=== PATIENT | female | born 1940 | race Caucasian/White ===

== ENCOUNTER 2018-02-15 14:02 | Inpatient (IN) | payer MEDICARE ==
--- NOTE | 2018-02-15 14:49 | RAD ---
SINGLE VIEW CHEST: Date: 02/15/18 COMPARISON: None. HISTORY: Chest pain that began today. Tachycardia. FINDINGS: Single view of the chest shows normal sized cardiomediastinal silhouette. There is elevation of the r ight hemidiaphragm. There is no evidence of consolidation, mass, or pleural effusion. Degenerative ch anges are seen in the spine. Hardware is seen at the cervicothoracic junction. IMPRESSION: No evidence of acute cardiopulmonary disease. POS: [facility]
[2018-02-15 14:50] LABS: Hemoglobin 15.4 g/dL (12.0-16.0); Mean Corpuscular HGB CONC 33.5 g/dL (32.0-36.0); Mean Corpuscular Hemoglobin 31.2 pg (27.0-31.0); Mean Platelet Volume 8.6 fL (7.4-10.4); Platelet Count 364 thou/uL (130-400); RBC Distribution Width 12.5 % (11.5-14.5); Red Blood Cell (RBC) Count 4.93 mill/uL (4.20-5.40); White Blood Cell (WBC) Count 21.4 thou/uL (4.8-10.8)
[2018-02-15] MEDS ORDERED: Metoprolol Tartrate 5 MG/5 ML VIAL ONE (14:54)
[2018-02-15 15:12] LABS: Band 2 % (5-11); Lymphocytes 14 % (21-51); MDiff Complete? YES; Monocytes 7 % (0-10); Neutrophil 71 % (42-75); PLT Morphology Comment Appears Adequate; RBC Morphology Normal; Reactive Lymphocytes 6 % (0-10)
[2018-02-15 15:17] LABS: CKMB 1.8 ng/mL (0-6.6); Troponin I 0.018 ng/mL (< 0.028)
--- NOTE | 2018-02-15 15:22 | CT ---
CT BRAIN WITHOUT CONTRAST: Date: 02/15/18 HISTORY: 77-year-old female with altered mental status. FINDINGS: No evidence of acute infarct, hemorrhage, midline shift, or abnormal extra-axial fluid collections ar e seen. The ventricular size is normal and the basilar cisterns are patent. There are changes of chrome worker dominique small vessel ischemic disease in the periventricular white matter. The bony calvarium is intact. The visualized paranasal sinuses and mastoid air cells are well aerated. IMPRESSION: No CT evidence of acute intracranial process. POS: [facility]
[2018-02-15 15:25] LABS: Albumin 4.1 g/dL (3.4-4.8)
[2018-02-15 15:26] LABS: Calcium 9.6 mg/dL (7.8-10.44); Chloride 98 mmol/L (98-107); Magnesium 2.3 mg/dL (1.6-2.6); Sodium 141 mmol/L (136-145)
[2018-02-15 15:27] LABS: Glucose 90 mg/dL (83-110)
--- NOTE | 2018-02-15 15:27 | CT ---
CT OF THE CERVICAL SPINE WITHOUT CONTRAST: Date: 02/15/18 COMPARISON: None. HISTORY: Neck injury with neck pain. TECHNIQUE: Multiple contiguous axial images were obtained in a CT of the cervical spine without contrast. Sagitt al and coronal reformats were performed. FINDINGS: The patient is status post anterior fusion of C4 through C6 with a plate and screws. In addition, the patient is status post anterior fusion of C7 and T1 with a plate and screws. There are severe degene rative changes surrounding the intervertebral disc between the two levels of fusion at C6-7. The vanesa tebral bodies demonstrate normal alignment without subluxation. No prevertebral soft tissue swelling is present. No perihardware lucency is present. The posterior facets are well aligned. Normal alignme nt of the skull base with the cervical spine is seen. IMPRESSION: Degenerative changes and postsurgical changes of the cervical spine without acute osseous abnormality . POS: [facility]
[2018-02-15 15:28] LABS: Globulin 3.4 g/dL (2.4-3.5); Protein, Total 7.5 g/dL (6.0-8.3)
[2018-02-15 15:29] LABS: Anion Gap 19 mmol/L (10-20); Bilirubin, Total 0.8 mg/dL (0.2-1.2); Carbon Dioxide 28 mmol/L (23-31)
[2018-02-15 15:31] LABS: Alkaline Phosphatase 71 U/L (40-150); Calc. Creatinine Clearance 0 mL/min (70-130); Estimated GFR-MDRD 61; Phosphorus 3.5 mg/dL (2.3-4.7)
[2018-02-15 15:32] LABS: BUN (Urea Nitrogen) 23 mg/dL (9.8-20.1)
[2018-02-15 15:33] LABS: ALT (SGPT) 33 U/L (8-55); AST (SGOT) 29 U/L (5-34)
[2018-02-15 15:34] LABS: CK (CPK) 285 U/L (29-168)
[2018-02-15 16:23] LABS: Bilirubin Negative (Negative); Blood, Urine Negative (Negative); Clarity CLOUDY (Clear); Glucose, Urine (Dipstick) Negative (Negative); Leukocyte Small (Negative); Nitrite Negative (Negative); Protein, Urine (Dipstick) Trace mg/dL (Neg-Trace); Specific Gravity, Urine 1.017 (1.002-1.036)
[2018-02-15 16:25] LABS: Bacteria/HPF None Seen HPF (None Seen); Pathc Cast-AUWi Flag 5.66 (0-2.49); RBC/HPF 0-3 HPF (0-3)
[2018-02-15 16:37] LABS: Hyaline Casts/LPF 7-10 HYALINE CAST LPF (0-3 Hyaline); Other Casts/LPF 0-3 COARSE GRAN LPF (0-3 Hyaline); Renal Epithelial None Seen HPF (0-3); Transitional Epithelial 0-3 HPF (0-3)
--- NOTE | 2018-02-15 20:17 | HP ---
DATE OF ADMISSION: 02/15/2018 CHIEF COMPLAINT: Chest pain. HISTORY OF PRESENT ILLNESS: This is a 77-year-old morbidly obese white female, is completely disorie nted and unable to understand anything, but initially was told by the ER physician the patient came f rom a fci with complaint of chest pain and EKG was done, which showed an evidence of atrial fibrillation with RVR with a ventricular rate of 130. The patient was given 5 mg of metoprolol IV an d the heart rate did come down to 80-90. The patient has severe dementia and she only talks about Deep pavan Ruvalcaba and calls him a white dye. Unable to understand any other things and she is not able to a nswer certain questions, but she does answer some questions. When asked about her kids, she told abo ut her son and daughters and she says she lives with her son. She complains of neck pain and she is on neck collar at this time. A CT of the cervical spine was done, which did not show any evidence of acute fractures. She had a CT of the head, which did not reveal any evidence of acute intracranial hemorrhage. Unable to get much history from this patient at this time and no other medical records a re available from her previous visits. The patient does complain of pain wherever we touch on the body, especially on the right upper quadra nt she does complain of pain and she says she mumbles about gallstones, but unable to comprehend exac tly what she is saying. She was noted to have a mild UTI with no bacteria, but she had a markedly el evated white count of 21,000. Likely the patient could be having gallbladder disease, but she denies having any nausea at this time. The patient denies having any fever. No headache at this time. No dizziness. PAST MEDICAL HISTORY: Unable to obtain. The patient has dementia and does have some aphasia. PAST SURGICAL HISTORY: Unable to obtain. SOCIAL HISTORY: Unable to obtain, but the patient lives in a fci at [place]. REVIEW OF SYSTEMS: Unable to obtain any review of systems at this time. There is no family member av ailable at the bedside. HOME MEDICATIONS: None. ALLERGIES: No known allergies were recorded. PHYSICAL EXAMINATION: VITAL SIGNS: Blood pressures were 130/66, heart rate was 80, respirations 18, saturation 98%. GENERAL: The patient is moderately built, morbidly obese. She is alert and disoriented. HEENT: Atraumatic, normocephalic. PERRLA. Extraocular movements were intact. Oral mucosa is pink and moist. CARDIOVASCULAR: S1, S2 normal. No murmurs, no rubs, no gallops. LUNGS: Bilateral air entry was equal. No wheezing, no crackles. ABDOMEN: Soft. Tenderness was noted in the right upper quadrant and otherwise bowel sounds were nor mal. MUSCULOSKELETAL: No calf tenderness. No pedal edema. No joint tenderness. No joint swelling. SKIN: No cyanosis, no erythema, no rash, no pallor. GEEK SQUAD AGENT: Could not be done. PSYCHIATRIC: This patient has evidence of dementia. No agitation was noted. NECK: No thyromegaly. No lymphadenopathy was noted. LABORATORY DATA: WBC 21,000, hemoglobin is 15.4, hematocrit is 45.9, platelets are 364. Sodium is 1 41, potassium is 4.0, chloride is 98, BUN 23, creatinine 0.89. Lactic acid is 2.6. ASSESSMENT: 1. Sepsis, unknown source. 2. Acute right upper quadrant pain and tenderness. 3. Atrial fibrillation with rapid ventricular response. 4. Severe dementia. 5. Acute encephalopathy. 6. Morbid obesity. PLAN: 1. Plan is to closely monitor this patient. She was initially given metoprolol, which did control t he heart rate, so we will start the patient on metoprolol 25 mg p.o. b.i.d. and put the patient on e telemetry. We will get a 2D echo to look for any evidence of a wall motion abnormality or any valv ular abnormalities. 2. The patient has evidence of right upper quadrant tenderness. We will do a stat right upper quadr ant ultrasound to look for any evidence of a cholecystitis. We will start the patient on Rocephin an d Flagyl to cover the anaerobic bacteria. 3. We will consult General Surgery if the patient has acute cholecystitis. 4. The patient is morbidly obese at this time and has a cervical collar would be a difficult intubat ion because of the cervical strain, but the patient has a CT which did not reveal any evidence of fra cture. 5. DVT prophylaxis with Lovenox started on 1 mg/kg b.i.d. I spent 75 minutes with this patient.
[2018-02-15] MEDS ORDERED: Acetaminophen 325 MG TAB PO PRN (20:44)
[2018-02-15] MEDS ORDERED: Ondansetron ODT 4 MG TAB SL PRN (20:44)
[2018-02-15] MEDS ORDERED: Ondansetron HCl/PF 4 MG/2 ML Vial IVP PRN (20:44)
[2018-02-15 20:47] LABS: Lactic Acid 2.1 mmol/L (0.5-2.2)
[2018-02-15] MEDS: Sodium Chloride 0.9% 1,000 ML IV SCH (21:40)
[2018-02-15 23:11] LABS: Troponin I Less than 0.010 ng/mL (< 0.028)
[2018-02-16] MEDS ORDERED: Metoprolol Tartrate 25 MG TAB PO SCH ×3 (00:42→09:00)
[2018-02-16] MEDS ORDERED: cefTRIAXone\\ROCEPHIN 1 GM in Sodium Chloride 0.9% 100 ML IVPB SCH (00:42)
[2018-02-16] MEDS ORDERED: Ondansetron HCl/PF 4 MG/2 ML Vial IVP PRN (00:42)
[2018-02-16 01:29] LABS: Troponin I 0.011 ng/mL (< 0.028)
[2018-02-16] MEDS ORDERED: Enoxaparin Sodium 80 MG/0.8 ML SYRINGE SC SCH ×2 (02:00→21:00)
[2018-02-16] MEDS: HYDROcodone/Acetaminophen 5/325 mg Tablet PO PRN ×2 (02:12→06:42)
[2018-02-16] MEDS: metroNIDAZOLE 500 MG in Premix Bag 1 BAG IVPB SCH ×4 (02:15→20:37)
[2018-02-16 05:52] LABS: #Basophils 0.1 thou/uL (0.0-0.2); #Eosinphils 0.2 thou/uL (0.0-0.7); #Lymphocytes 2.9 thou/uL (1.20-3.40); #Monocytes 1.2 thou/uL (0.11-0.59); #Neutrophils 10.7 thou/uL (1.40-6.50); %Basophils 0.6 % (0.0-1.0); %Eosinophils 1.2 % (0.0-10.0); %Lymphocytes 19.1 % (21.0-51.0); %Neutrophils 71.1 % (42.0-75.0); Hemoglobin 11.9 g/dL (12.0-16.0); Mean Corpuscular HGB CONC 33.9 g/dL (32.0-36.0); Mean Corpuscular Hemoglobin 31.5 pg (27.0-31.0); Mean Corpuscular Volume 93.1 fl (81.0-99.0); Mean Platelet Volume 8.3 fL (7.4-10.4); Platelet Count 313 thou/uL (130-400); RBC Distribution Width 12.2 % (11.5-14.5); Red Blood Cell (RBC) Count 3.79 mill/uL (4.20-5.40)
[2018-02-16 06:06] LABS: Anion Gap 8 mmol/L (10-20); BUN (Urea Nitrogen) 18 mg/dL (9.8-20.1); Calc. Creatinine Clearance 93 mL/min (70-130); Calcium 8.1 mg/dL (7.8-10.44); Carbon Dioxide 28 mmol/L (23-31); Cardiac Risk 2.6 (Less than 4.5); Chloride 107 mmol/L (98-107); Cholesterol 98 mg/dl (< 200 Desired); Estimated GFR-MDRD 86; Glucose 114 mg/dL (83-110); HDL Cholesterol 37 mg/dL (>60 Neg Risk); LDL Cholesterol, Calculated 40 mg/dL; Potassium 3.3 mmol/L (3.5-5.1); Sodium 140 mmol/L (136-145); Triglycerides 107 mg/dL (Less than 150)
[2018-02-16] MEDS: Sodium Chloride 0.9% 1,000 ML IV SCH ×3 (06:27→13:38)
--- NOTE | 2018-02-16 07:02 | ULT ---
GALLBLADDER ULTRASOUND: CLINICAL HISTORY: Abdominal pain. Clinical concern for cholecystitis. FINDINGS: There is moderate distention of the gallbladder. Increased echogenicity of the gallbladder is presen t, which indicates cholelithiasis and probable gallbladder sludge. The gallbladder wall is normal, m easuring less than 2 mm in thickness. The common duct is normal in diameter, at 4-5 mm. No ascites. Decreased acoustic penetration does limit visualization of the hepatic parenchyma. Incidental small right renal cyst. IMPRESSION: 1. Cholelithiasis and gallbladder sludge. 2. No abnormal biliary ductal dilatation. 3. Limited visualization of the liver. POS: [facility]
[2018-02-16] MEDS: Pantoprazole 40 MG VIAL IVP SCH (08:58)
[2018-02-16] MEDS ORDERED: Aspirin 325 MG TAB PO SCH (09:00)
--- NOTE | 2018-02-16 12:40 | CON ---
DATE OF CONSULTATION: 02/16/2018 REASON FOR CONSULTATION: Tachycardia, initially thought to be atrial fibrillation, but looks like si nus tachycardia with PACs. HISTORY OF PRESENT ILLNESS: Ms. Raeann Calderon is a very pleasant 77-year-old woman. She has history of dementia. She lives in a local halfway. The patient was given intravenous metoprolol and th e heart rate decreased. No fever, no dizziness. PAST MEDICAL HISTORY: Not obtainable. She has dementia. PAST SURGICAL HISTORY: Unknown. SOCIAL HISTORY: Lives in a halfway in [place]. REVIEW OF SYSTEMS: Really not reliable. She is unable to give a consistent history HOME MEDICATIONS: None. ALLERGIES: None recorded. PHYSICAL EXAMINATION: GENERAL: It is a very pleasant 77-year-old woman. She is oriented. She knows she is in the [facility], but otherwise is confused. VITAL SIGNS: Blood pressure 126/60, pulse is now in the 90s, it is regular. LUNGS: Clear. NECK: Neck veins are normal. Carotid; normal upstrokes. LUNGS: Clear anteriorly and laterally. CARDIAC: Normal S1, normal S2. I do not hear murmur, rub or gallop. ABDOMEN: Obese, nontender, no hepatosplenomegaly. EXTREMITIES: Warm, dry, no clubbing or cyanosis. There is no edema. PSYCHIATRIC: Mood and affect normal. NEUROLOGIC: Grossly normal. SKIN: Warm and dry. She is listed as 5 foot 8 inches tall, 188 pounds, but she is clearly much larger than that. I think it is not an accurate weight. The patient is morbidly obese. PERTINENT LABORATORY: The hemoglobin is 11.9, WBC was high at 21.4, now it is 15, troponin level les s than 0.010, BNP 43.4. ASSESSMENT: 1. Sinus tachycardia with premature atrial contractions. 2. No evidence of atrial fibrillation at this time. 3. Dementia. 4. Possible infection, being treated. PLAN: 1. I agree with low dose beta blockers. 2. The patient is receiving antibiotics. 3. No other recommendations at this time. 4. Echocardiogram pending.
--- NOTE | 2018-02-16 13:20 | PDOC.PN ---
- Subjective Encounter Start Date: 02/16/18 Encounter Start Time: 13:10 Subjective: f/u SIRS of unclear source receiving Rocephin and Metronidazole. -: No new complaints. Rambling speech and stories. - Objective Resuscitation Status: Resuscitation Status FULL:Full Resuscitation MAR Reviewed: Yes Vital Signs & Weight: Vital Signs (12 hours) Temp Pulse Resp BP Pulse Ox 02/16/18 12:00 98.7 F 81 18 117/75 97 02/16/18 08:48 98.5 F 88 18 125/60 100 02/16/18 08:00 98.5 F 88 18 02/16/18 06:09 95 02/16/18 04:00 98.5 F 78 20 102/57 L 98 Weight Weight 188 lb 3.2 oz I&O: 02/15/18 02/16/18 02/17/18 06:59 06:59 06:59 Intake Total 931 Balance 931 Result Diagrams: 02/16/18 05:24 02/16/18 05:24 Additional Labs: Accuchecks 02/16/18 02/16/18 11:09 05:55 POC Glucose 136 H 105 Microbiology 02/15/18 16:17 Urine Straight Catheter Urine Culture - Preliminary NO GROWTH AT 12 HOURS 02/15/18 15:40 Venous blood - Right Hand Blood Culture - Preliminary Specimen has been received and culture in progress. No Growth to date. 02/15/18 14:44 Venous blood - Left Hand Blood Culture - Preliminary Specimen has been received and culture in progress. No Growth to date. Laboratory Tests 02/15/18 02/15/18 02/15/18 14:34 14:43 15:41 WBC 21.4 H Hgb 15.4 Lactic Acid 2.6 H TSH 3rd Generation 1.1350 02/15/18 20:26 WBC Hgb Lactic Acid 2.1 TSH 3rd Generation Radiology Reviewed by me: Yes (ABD sono - cholelithiasis and sludge, no obstruction) EKG Reviewed by me: Yes (Tele - SR with PAC's) Phys Exam - Physical Examination Constitutional: NAD alert, talkative HEENT: PERRLA, oral pharynx no lesions Neck: no JVD, supple Respiratory: no wheezing, no rales, no rhonchi Cardiovascular: RRR, no significant murmur, no rub Gastrointestinal: soft, non-tender, no distention, positive bowel sounds TTP diffusely Musculoskeletal: no edema, pulses present Neurological: normal sensation, moves all 4 limbs A x O x 1 Skin: normal turgor, cap refill <2 seconds Dx/Plan (1) SIRS (systemic inflammatory response syndrome) Code(s): R65.10 - SIRS OF NON-INFECTIOUS ORIGIN W/O ACUTE ORGAN DYSFUNCTION Status: Acute Comment: No identified source currently, await final Ucx and blooc cx, continue Rocephin another 24h and monitor clinical response (2) Dementia Code(s): F03.90 - UNSPECIFIED DEMENTIA WITHOUT BEHAVIORAL DISTURBANCE Status: Chronic Comment: Continue supportive mgmt, reorientation techniques, attempt to update family of status (3) Chronic pain Code(s): G89.29 - OTHER CHRONIC PAIN Status: Chronic Qualifiers: Chronic pain type: chronic pain syndrome Qualified Code(s): G89.4 - Chronic pain syndrome Comment: Resume Lyrica, Celexa and Baclofen (4) Encephalopathy acute Code(s): G93.40 - ENCEPHALOPATHY, UNSPECIFIED Status: Acute Comment: Likely multifactorial including polypharmacy and narcotic use, hold Morphine Sulfate - Plan continue antibiotics, social worker assistant, DVT proph w/SCDs Stable currentlly -: Await final Blood/Ucx results -: Continue Rocephin and Metronidazole another 24h -: D/C Lovenox -: Saline lock IVF's * AM lab: CBC, BMP * Back to NH in am
[2018-02-16] MEDS: Baclofen 10 MG TAB PO SCH ×2 (14:49→20:38)
[2018-02-16] MEDS ORDERED: Non-Formulary Item 1 EACH (Baclofen [Baclofen] 20 MG) PO SCH (15:00)
[2018-02-16] MEDS: cefTRIAXone\\ROCEPHIN 1 GM, Syringe 0.4 ML in Sterile Water 9.6 ML SLOW IVP SCH (16:37)
[2018-02-16] MEDS: Pregabalin 75 MG CAP PO SCH (20:38)
[2018-02-16] MEDS: Acetaminophen 325 MG TAB PO PRN (21:34)
[2018-02-17] MEDS: metroNIDAZOLE 500 MG in Premix Bag 1 BAG IVPB SCH ×2 (01:57→09:00)
[2018-02-17] MEDS: Acetaminophen 325 MG TAB PO PRN ×3 (02:46→13:24)
[2018-02-17 06:27] LABS: Anion Gap 13 mmol/L (10-20); BUN (Urea Nitrogen) 14 mg/dL (9.8-20.1); Band 1 % (5-11); Calc. Creatinine Clearance 102 mL/min (70-130); Calcium 8.2 mg/dL (7.8-10.44); Carbon Dioxide 22 mmol/L (23-31); Chloride 109 mmol/L (98-107); Eosinophils 2 % (0-10); Estimated GFR-MDRD Greater than 90; Glucose 93 mg/dL (83-110); Hemoglobin 11.5 g/dL (12.0-16.0); Lymphocytes 28 % (21-51); MDiff Complete? YES; Mean Corpuscular HGB CONC 33.9 g/dL (32.0-36.0); Mean Corpuscular Hemoglobin 31.5 pg (27.0-31.0); Mean Platelet Volume 8.3 fL (7.4-10.4); Monocytes 6 % (0-10); Neutrophil 62 % (42-75); PLT Morphology Comment Appears Adequate; Platelet Count 301 thou/uL (130-400); RBC Distribution Width 12.2 % (11.5-14.5); Red Blood Cell (RBC) Count 3.65 mill/uL (4.20-5.40); Sodium 141 mmol/L (136-145)
[2018-02-17 06:29] LABS: Potassium 2.9 mmol/L (3.5-5.1)
[2018-02-17] MEDS ORDERED: Potassium Chloride 20 MEQ TAB PO SCH (08:00)
[2018-02-17] MEDS: Pantoprazole 40 MG VIAL IVP SCH (09:00)
[2018-02-17] MEDS: Baclofen 10 MG TAB PO SCH ×3 (09:00→21:29)
[2018-02-17] MEDS ORDERED: Non-Formulary Item 1 EACH (Cetirizine Hcl [Zyrtec] 10 MG) PO SCH (09:00)
[2018-02-17] MEDS: Citalopram 20 MG TAB PO SCH ×2 (09:01→10:52)
[2018-02-17] MEDS: Lisinopril 10 MG TAB PO SCH (09:01)
[2018-02-17] MEDS: Loratadine 10 MG TAB PO SCH ×2 (09:01→10:53)
[2018-02-17] MEDS: Pregabalin 75 MG CAP PO SCH ×2 (09:01→21:28)
--- NOTE | 2018-02-17 10:44 | PDOC.PN ---
- Subjective Encounter Start Date: 02/17/18 Encounter Start Time: 10:40 Subjective: f/u for suspected SIRS of unclear source on Rocephin and Metronidazole. -: No fever documented and WBC normalized. Pt remains tangential in speech -: with rambling stories, confused. - Objective Resuscitation Status: Resuscitation Status FULL:Full Resuscitation MAR Reviewed: Yes Vital Signs & Weight: Vital Signs (12 hours) Temp Pulse Resp BP Pulse Ox 02/17/18 09:01 97 02/17/18 08:53 98.8 F 97 18 137/71 97 02/17/18 04:00 98.7 F 88 20 129/69 97 02/17/18 00:00 98.0 F 89 20 121/73 96 Weight Weight 196 lb I&O: 02/16/18 02/17/18 02/18/18 06:59 06:59 06:59 Intake Total 931 1700 Output Total 1820 Balance 931 -120 Result Diagrams: 02/17/18 05:12 02/17/18 05:12 Additional Labs: Accuchecks 02/17/18 02/16/18 02/16/18 05:42 20:45 16:57 POC Glucose 98 130 H 119 H 02/16/18 02/15/18 11:09 21:30 POC Glucose 136 H 121 H Microbiology 02/15/18 16:17 Urine Straight Catheter Urine Culture - Final NO GROWTH AT 36 HOURS 02/15/18 16:17 Urine Straight Catheter Urine Culture - Preliminary NO GROWTH AT 12 HOURS 02/15/18 15:40 Venous blood - Right Hand Blood Culture - Preliminary Specimen has been received and culture in progress. No Growth to date. 02/15/18 14:44 Venous blood - Left Hand Blood Culture - Preliminary Specimen has been received and culture in progress. No Growth to date. Laboratory Tests 02/15/18 02/15/18 02/15/18 14:34 14:43 14:43 WBC 21.4 H Hgb 15.4 Potassium 4.0 Lactic Acid Triglycerides Cholesterol LDL Cholesterol, Calc HDL Cholesterol TSH 3rd Generation 1.1350 02/15/18 02/15/18 02/16/18 15:41 20:26 05:24 WBC Hgb Potassium 3.3 L Lactic Acid 2.6 H 2.1 Triglycerides 107 Cholesterol 98 LDL Cholesterol, Calc 40 HDL Cholesterol 37 TSH 3rd Generation 02/16/18 05:24 WBC 15.0 H Hgb Potassium Lactic Acid Triglycerides Cholesterol LDL Cholesterol, Calc HDL Cholesterol TSH 3rd Generation Radiology Reviewed by me: Yes (2D echo - EF 55-60%, PA 40mmHg, SR with PAC's) EKG Reviewed by me: Yes (Tele - SR with PAC's) Phys Exam - Physical Examination Constitutional: NAD alert, confused, rambling speech HEENT: PERRLA, oral pharynx no lesions Neck: no nodes, no JVD, supple diminished in bases Respiratory: no wheezing, no rales, clear to auscultation bilateral Cardiovascular: RRR, no significant murmur, no rub mild TTP in all quadrants, no rebound or guarding, no mass Gastrointestinal: soft, no distention, positive bowel sounds Musculoskeletal: no edema, pulses present Neurological: non-focal, normal sensation, moves all 4 limbs A x O x 2 Skin: no rash, normal turgor, cap refill <2 seconds Dx/Plan (1) SIRS (systemic inflammatory response syndrome) Code(s): R65.10 - SIRS OF NON-INFECTIOUS ORIGIN W/O ACUTE ORGAN DYSFUNCTION Status: Acute Comment: No identified source currently, continue Rocephin another 24h and monitor clinical response, d/c Flagyl (2) Dementia Code(s): F03.90 - UNSPECIFIED DEMENTIA WITHOUT BEHAVIORAL DISTURBANCE Status: Chronic Comment: Continue supportive mgmt, reorientation techniques, limit pain meds (3) Chronic pain Code(s): G89.29 - OTHER CHRONIC PAIN Status: Chronic Qualifiers: Chronic pain type: chronic pain syndrome Qualified Code(s): G89.4 - Chronic pain syndrome Comment: Resume Lyrica, Celexa and Baclofen, limit narcotic exposure, consider trial of Lidocaine patches (4) Encephalopathy acute Code(s): G93.40 - ENCEPHALOPATHY, UNSPECIFIED Status: Acute Comment: Likely multifactorial including polypharmacy and narcotic use, hold Morphine Sulfate (5) Hypokalemia Code(s): E87.6 - HYPOKALEMIA Status: Acute Comment: KCL 40meq BID, repeat K + level in am - Plan plan discussed w/ family, continue antibiotics, PT/OT, director of social media marketing, out of bed/ambulate, DVT proph w/SCDs Stable overall -: Updated pt's son Vish Be regarding current clinical condition and -: plans for discharge, son states she would need more rehab and PT before -: transitioning back to home in [place] -: D/C Metronidazole * Continue Rocephin another 24h * CM consult for options on SNF/Rehab in [place], [place] area * AM lab: [facility]UST[facility]
[2018-02-17] MEDS: cefTRIAXone\\ROCEPHIN 1 GM, Syringe 0.4 ML in Sterile Water 9.6 ML SLOW IVP SCH (16:12)
[2018-02-17] MEDS: HYDROcodone/Acetaminophen 5/325 mg Tablet PO PRN (21:29)
[2018-02-18] MEDS: Morphine 4 MG/ML VIAL SLOW IVP PRN ×5 (00:25→23:58)
[2018-02-18] MEDS: HYDROcodone/Acetaminophen 5/325 mg Tablet PO PRN ×2 (05:30→12:52)
[2018-02-18] MEDS: Baclofen 10 MG TAB PO SCH ×3 (08:12→21:40)
[2018-02-18] MEDS: Pregabalin 75 MG CAP PO SCH ×2 (08:12→21:40)
[2018-02-18] MEDS: Lisinopril 10 MG TAB PO SCH (08:13)
[2018-02-18] MEDS: Citalopram 20 MG TAB PO SCH (08:13)
[2018-02-18] MEDS: Loratadine 10 MG TAB PO SCH (08:13)
--- NOTE | 2018-02-18 10:03 | PRG ---
DATE OF SERVICE: 02/18/2018. SUBJECTIVE: Ms. Calderon is awake and alert. She has had some rambling speech, but otherwise is doin g well. OBJECTIVE: VITAL SIGNS: Blood pressure is high 166/72, pulse 76 regular. LUNGS: Clear. CARDIAC: Normal S1 and normal S2. ASSESSMENT: 1. Hypertension. 2. Sinus tachycardia with PACs, improved. 3. No evidence of any atrial fibrillation. PLAN: 1. Would increase beta blockers. 2. Stop diltiazem and increase ALEX inhibitors. 3. Okay with me to be moved to a non-monitored floor. No indication to continue telemetry at this t pancho.
[2018-02-18 10:51] LABS: Anion Gap 12 mmol/L (10-20); BUN (Urea Nitrogen) 12 mg/dL (9.8-20.1); Calc. Creatinine Clearance 104 mL/min (70-130); Calcium 8.3 mg/dL (7.8-10.44); Carbon Dioxide 22 mmol/L (23-31); Chloride 110 mmol/L (98-107); Estimated GFR-MDRD Greater than 90; Glucose 154 mg/dL (83-110); Sodium 140 mmol/L (136-145)
--- NOTE | 2018-02-18 13:42 | PDOC.PN ---
- Subjective Encounter Start Date: 02/18/18 Encounter Start Time: 13:40 Subjective: c/p paain otherwise does not answer any question prpperly -: had to be redirected multiple times - Objective Resuscitation Status: Resuscitation Status FULL:Full Resuscitation MAR Reviewed: Yes Vital Signs & Weight: Vital Signs (12 hours) Temp Pulse Resp BP BP Pulse Ox 02/18/18 11:28 98.2 F 73 20 122/63 02/18/18 08:13 76 166/72 H 02/18/18 08:07 98.0 F 76 18 166/72 H 96 02/18/18 04:00 98.6 F 74 20 135/85 97 Weight Admit Weight 188 lb 3.2 oz Weight 197 lb 7 oz I&O: 02/17/18 02/18/18 02/19/18 06:59 06:59 06:59 Intake Total 1700 720 Output Total 1820 300 Balance -120 420 Result Diagrams: 02/17/18 05:12 02/18/18 09:50 Additional Labs: Accuchecks 02/18/18 02/18/18 02/17/18 10:51 05:56 20:50 POC Glucose 155 H 118 H 99 02/17/18 16:45 POC Glucose 118 H Microbiology 02/15/18 16:17 Urine Straight Catheter Urine Culture - Final NO GROWTH AT 36 HOURS 02/15/18 15:40 Venous blood - Right Hand Blood Culture - Preliminary NO GROWTH AT 48 HOURS 02/15/18 14:44 Venous blood - Left Hand Blood Culture - Preliminary NO GROWTH AT 48 HOURS Phys Exam - Physical Examination Constitutional: NAD HEENT: PERRLA, moist MMs, sclera anicteric, oral pharynx no lesions Neck: no JVD Respiratory: no wheezing, no rales, no rhonchi Cardiovascular: RRR, no significant murmur Gastrointestinal: soft, non-tender, no distention, positive bowel sounds Musculoskeletal: no edema, pulses present Neurological: non-focal, normal sensation, moves all 4 limbs Skin: no rash Dx/Plan (1) SIRS (systemic inflammatory response syndrome) Code(s): R65.10 - SIRS OF NON-INFECTIOUS ORIGIN W/O ACUTE ORGAN DYSFUNCTION Status: Acute Comment: No identified source currently, continue Rocephin another 24h and monitor clinical response, d/c Flagyl (2) Hypokalemia Code(s): E87.6 - HYPOKALEMIA Status: Resolved Comment: KCL 40meq BID, repeat K+ level in am (3) Chronic pain Code(s): G89.29 - OTHER CHRONIC PAIN Status: Chronic Qualifiers: Chronic pain type: chronic pain syndrome Qualified Code(s): G89.4 - Chronic pain syndrome Comment: Resume Lyrica, Celexa and Baclofen, limit narcotic exposure, consider trial of Lidocaine patches (4) Dementia Code(s): F03.90 - UNSPECIFIED DEMENTIA WITHOUT BEHAVIORAL DISTURBANCE Status: Chronic Comment: Continue supportive mgmt, reorientation techniques, limit pain meds - Plan continue antibiotics, PT/OT, out of bed/ambulate, DVT proph w/SCDs DC planning.discissed w pt. Rehab on DC -: will consult pain mamangement as demanding more narcotics -: potassium improved.cont to monitor -: OK to DC when rehab arranged.HD stable -: move to medical floor. * . Review of Systems - Review of Systems Constitutional: weakness, malaise. negative: fever, chills, sweats, other Respiratory: negative: Cough, Dry, Shortness of Breath, Hemoptysis, SOB with Excertion, Pleuritic Pain, Sputum, Wheezing Cardiovascular: negative: chest pain, palpitations, orthopnea, paroxysmal nocturnal dyspnea, edema, light headedness, other Gastrointestinal: negative: Nausea, Vomiting, Abdominal Pain, Diarrhea, Constipation, Melena, Hematochezia, Other Genitourinary: negative: Dysuria, Frequency, Incontinence, Hematuria, Retention , Other Musculoskeletal: Back Pain, Leg Pain - Medications/Allergies Allergies/Adverse Reactions: Allergies Allergy/AdvReac Type Severity Reaction Status Date / Time aspirin Allergy Verified 02/15/18 23:11 clindamycin Allergy Verified 02/15/18 23:11 egg Allergy Verified 02/15/18 23:16 ether Allergy Verified 02/15/18 23:16 NSAIDS (Non-Steroidal Allergy Verified 02/15/18 23:11 Anti-Inflamma Penicillins Allergy Verified 02/15/18 23:11 Sulfa (Sulfonamide Allergy Verified 02/15/18 23:11 Antibiotics) tetracycline Allergy Verified 02/15/18 23:11 Medications: Current Medications Acetaminophen (Tylenol) 650 mg PO Q4H PRN PRN Reason: Headache/Fever or Pain Last Admin: 02/17/18 13:24 Dose: 650 mg Hydrocodone Bitart/Acetaminophen ([place] 5/325) 1 tab PO Q4H PRN PRN Reason: Moderate Pain (4-6) Last Admin: 02/16/18 06:42 Dose: 1 tab Hydrocodone Bitart/Acetaminophen ([place] 5/325) 2 tab PO Q4H PRN PRN Reason: Moderate to Severe Pain (6-10) Last Admin: 02/18/18 12:52 Dose: 2 tab Baclofen (Lioresal) 20 mg PO TID [facility] Last Admin: 02/18/18 08:12 Dose: 20 mg Citalopram Hydrobromide (Celexa) 20 mg PO DAILY [facility] Last Admin: 02/18/18 08:13 Dose: 20 mg Cyanocobalamin (Vitamin B-12) 1,000 mcg IM Q7DAYS [facility] Ceftriaxone Sodium 1 gm/ (Syringe 0.4 ml/ Sterile Water) 10 mls @ 120 mls/hr SLOW IVP 1500 [facility] Last Admin: 02/17/18 16:12 Dose: Not Given Lisinopril (Zestril) 20 mg PO DAILY [facility] Loratadine (Claritin) 10 mg PO DAILY [facility] Last Admin: 02/18/18 08:13 Dose: 10 mg Metoprolol Succinate (Toprol Xl) 50 mg PO BID [facility] Morphine Sulfate (Morphine) 4 mg SLOW IVP Q4H PRN PRN Reason: Severe Pain (7-10) Last Admin: 02/18/18 08:11 Dose: 4 mg Ondansetron HCl (Zofran) 4 mg IVP Q6H PRN PRN Reason: Nausea/Vomiting Pantoprazole Sodium (Protonix) 40 mg PO DAILY [facility] Last Admin: 02/18/18 08:13 Dose: 40 mg Pregabalin (Lyrica) 75 mg PO BID [facility] Last Admin: 02/18/18 08:12 Dose: 75 mg Sodium Chloride (Flush - Normal Saline) 10 ml IVF Q12HR [facility] Last Admin: 02/18/18 08:12 Dose: 10 ml Sodium Chloride (Flush - Normal Saline) 10 ml IVF PRN PRN PRN Reason: Saline Flush
[2018-02-18] MEDS: cefTRIAXone\\ROCEPHIN 1 GM, Syringe 0.4 ML in Sterile Water 9.6 ML SLOW IVP SCH (15:13)
[2018-02-18] MEDS: Acetaminophen 325 MG TAB PO PRN ×2 (17:44→21:55)
[2018-02-18] MEDS ORDERED: Melatonin 3 MG TAB PO PRN (22:19)
[2018-02-19 06:45] LABS: Anion Gap 10 mmol/L (10-20); BUN (Urea Nitrogen) 11 mg/dL (9.8-20.1); Calc. Creatinine Clearance 116 mL/min (70-130); Calcium 8.4 mg/dL (7.8-10.44); Carbon Dioxide 21 mmol/L (23-31); Chloride 111 mmol/L (98-107); Estimated GFR-MDRD Greater than 90; Glucose 98 mg/dL (83-110); Potassium 3.9 mmol/L (3.5-5.1); Sodium 138 mmol/L (136-145)
[2018-02-19] MEDS: Morphine 4 MG/ML VIAL SLOW IVP PRN (07:54)
[2018-02-19] MEDS ORDERED: Dextrose 5% in Water 1,000 ML IV PRN (08:39)
[2018-02-19] MEDS ORDERED: HumaLOG 300 UNITS/3 ML VIAL SC PRN ×2 (08:39)
[2018-02-19] MEDS ORDERED: Dextrose 50% Abboject 50 ML SYRINGE SLOW IVP PRN (08:39)
[2018-02-19] MEDS ORDERED: Morphine IR Tab 15 MG TAB PO SCH (09:00)
[2018-02-19] MEDS ORDERED: Lisinopril 20 MG TAB PO SCH (09:00)
[2018-02-19] MEDS: Baclofen 10 MG TAB PO SCH (09:24)
[2018-02-19] MEDS: Citalopram 20 MG TAB PO SCH (09:25)
[2018-02-19] MEDS: Loratadine 10 MG TAB PO SCH (09:26)
[2018-02-19] MEDS: Pregabalin 75 MG CAP PO SCH (09:26)
[2018-02-19 09:35] VITALS: BMI 30.7
--- NOTE | 2018-02-19 10:22 | CON ---
DATE OF CONSULTATION: 02/19/2018 REASON FOR CONSULTATION: Whole body pain. CHIEF COMPLAINT: Neck pain radiating to the whole body. HISTORY OF PRESENT ILLNESS: The patient is a 77-year-old woman with dementia who was taken to the ER on 02/15/2018 after an apparent [facility]. Full workup has revealed a diagnosis of possible SIRS and currently is being treated. She did complain of neck pain when she arrived and choudhary s been receiving Coal Run and morphine IV for this. This was worked up with a CT scan and CT results re veal an ACDF at C5-6 and C6-7 without any hardware complications. The patient is difficult to have a conversation with and is a very poor historian. In fact, even asking direct questions about her jaylon n result in her talking about symptoms that are unrelated to her pain such as nearsightedness and far -sidedness and pain when she was 1 years old. Therefore, it is hard to get a correct history. She s tates that she does have neck pain and it radiates into her chest and down her hips and down her legs . She states that she has had this pain since she was 1 years old. The patient does also complain o f pain with even gentle touch of the body. For example, when I moved her sheets by accident near her knees she stated that this hurt her knees severely as well as her stomach. PAST MEDICAL HISTORY: Unable to obtain. She has dementia. PAST SURGICAL HISTORY: Unable to obtain. SOCIAL HISTORY: She does live in a penitentiary. She does deny drugs, alcohol, and smoking. REVIEW OF SYSTEMS: Unable to obtain any review of systems at this time. There is no family member a vailable at the bedside. HOME MEDICATIONS: From the penitentiary as far as narcotics and pain medicine, we have MS IR 15 mg p .o. b.i.d., Lyrica 75 mg p.o. b.i.d., and baclofen 20 mg p.o. b.i.d. ALLERGIES: No known allergies noted at this time. PHYSICAL EXAMINATION: VITAL SIGNS: Currently, blood pressure 122/64, pulse of 70, temperature 97.7, respiratory rate is 18 with a saturation of 97 on room air. GENERAL: The patient is alert, but disoriented. HEENT: Atraumatic, normocephalic. Extraocular movements are intact. Oral mucosa is pink and moist. CHEST: Lungs symmetric, unlabored respirations. Bilateral chest rise. ABDOMEN: Soft, but severe tenderness with any type of palpation; however, this is consistent with an y palpation around her entire body. MUSCULOSKELETAL: Moving all extremities, 5/5 strength in upper extremity and lower extremities. No joint swelling seen. SKIN: No cyanosis, erythema or rash. NEUROLOGIC: Diminished reflexes in the bilateral upper extremity. No Cmcann's. PSYCHIATRIC: The patient does have evidence of dementia or delirium, no agitation. She is wearing a neck collar. LABORATORY: Sodium 138, potassium 3.9, chloride 111, carbon dioxide is 21, BUN over creatinine 11/0. 57, calcium of 8.4. White blood cell count this morning is 10, H&H is 11.5/34, platelets are 301. ASSESSMENT AND PLAN: 1. Chronic pain syndrome. Discontinue morphine IV. Discontinue Coal Run. She has received Coal Run 20 m g over the last 24 hours as well as morphine IV push 4 mg. We will discontinue this and then put her back on her home regimen of morphine sulfate IR 50 mg p.o. b.i.d., continue Lyrica 75 mg p.o. b.i.d. and start baclofen back at 10 mg p.o. b.i.d. as this could contribute to her delirium. 2. Post-laminectomy syndrome, neck pain could involve facet origin. There is tenderness to palpatio n over her whole neck. Hardware is intact on the CT scan. However, she may have degeneration above and below her fusion of the facets. She may benefit from cervical medial branch blocks in the future . However, given her delirium and dementia she likely would not be able to adequately tell us if the diagnostic test works. Therefore, I suggest holding off on this. 3. Dementia and systemic inflammatory response syndrome per primary team. Okay to discharge per jaylon n management, and she will follow up with her current primary care doctor. No further recommendations at that time we will be signing off.
[2018-02-19 12:03] VITALS: BP 135/77; TEMP 98.2
[2018-02-19] MEDS ORDERED: Baclofen 10 MG TAB PO SCH (21:00)
--- NOTE | 2018-02-19 22:39 | DIS ---
DATE OF ADMISSION: 02/15/2018 DATE OF DISCHARGE: 02/19/2018 CONDITION AT THE TIME OF DISCHARGE: Stable and improved. DISCHARGE DISPOSITION: Back to [facility] for rehabilitation. PRIMARY CARE PHYSICIAN: Out of town in [facility]. DISCHARGE DIAGNOSES: 1. Systemic inflammatory response syndrome, infection ruled out. 2. Hypokalemia, resolved. 3. Chronic pain. 4. Dementia. 5. Sinus tachycardia with premature atrial contractions and hypertension. INHOUSE CONSULTATIONS: Cardiology, Dr. Moore; and Pain Medicine Dr. Hernandez. PROCEDURES DONE IN THE HOSPITAL: Include: 1. CT scan of the brain and cervical spine upon presentation, both of them are unremarkable for any acute processes. 2. Abdominal ultrasound, which shows cholelithiasis and gallbladder sludge without any biliary ducta l dilatation. 3. Transthoracic echocardiogram, which shows ejection fraction of 55% to 60% and normal sinus rhythm with some PACs. No other valvular abnormality. DISCHARGE MEDICATIONS: NovoLog FlexPen as needed, vitamin B12 IM every 7 days, Celexa 20 mg daily, b aclofen 20 mg p.o. t.i.d., morphine IR 15 mg p.o. b.i.d., Lyrica 75 p.o. b.i.d., Klor-Con 20 mEq michelle y, Lasix 80 mg p.o. b.i.d., sublingual nitroglycerin as needed, Protonix 40 mg daily. New medication : Toprol-XL 50 mg p.o. b.i.d. as started by Cardiology and lisinopril 20 mg daily. The patient was taken off of her diltiazem at this time. HISTORY OF PRESENTING ILLNESS: Ms. 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 There was one EKG that showed atrial fibrillation with RVR with a ventricular r ate of 130. She was given IV metoprolol in the emergency room with control of the heart rate. She w as found to have baseline dementia and was very difficult to get any history out of her. CT scan of the brain and cervical spine done in the emergency room did not reveal any abnormalities. She did choudhary ve elevated white blood cell count of 21,000 and was admitted with a presumptive diagnosis of SIRS to rule out sepsis. Also, Cardiology was consulted with regards to her atrial fibrillation with RVR. Please see admission history and physical for further details. HOSPITAL COURSE: The patient was seen by Cardiology, Dr. Moore. His recommendation was that this i s not an atrial fibrillation, but a sinus tachycardia with PACs. He discontinued her diltiazem and s tarted her on beta estrella and her dosages were adjusted. Echocardiogram was done, which was unremar kable. Eventually, the patient was stable on the new medication of metoprolol. Her ALEX inhibitor do se was also increased. The patient had the workup done for infectious causes and her cultures remained negative. Her leukoc ytosis resolved without any intervention and with empiric antibiotics that were discontinued at the t pancho of discharge as there is no clear evidence of any infection. By the time of discharge, the patient was back to her baseline. It was difficult to set her up with any facility because of poor communication from her family and because the patient was not able to gi ve any coherent history other than tangential thinking and ramblings. We did try to set her up with some sort of rehab facility as per the family request in [place], but she was denied and because she was medically stable and had no longer any need to stay in the hospital. She was discharged back to [facility]. I have personally discussed her care and her discharge plan with he r son, Mr. Will Be prior to discharge and he verbalized understanding. PHYSICAL EXAMINATION: She was seen and examined prior to discharge. Her physical examination this m orning include: VITAL SIGNS: Temperature 98.2, pulse of 71, respirations 20, saturating 98% on room air, blood press ure 125/77. GENERAL: No acute distress. She is awake, but has no clear answer to any of the questions, does not follow simple commands. CHEST: Clear to auscultation bilaterally. CARDIAC: Rate and rhythm is regular. LABORATORY EXAMINATION: Urine culture, blood culture remained negative. WBC is 10, which was 21.4 u burak presentation. Serum chemistries unremarkable. Total time spent in the discharge of this patient 38 minutes including discussion with the family, ca se clinic office manager, nursing, and [id number] interaction.
[2018-02-23] MEDS ORDERED: Cyanocobalamin 1000 MCG/ML VIAL IM SCH (09:00)
== END 2018-02-19 12:35 | DRG 92 ==
LOC: ERS 14:02 → 2NO 17:37 → ONC 02-18 17:26
PROVIDERS: ADMIT Family Medicine; ATTEND Family Medicine
DX: G92 Toxic encephalopathy (principal); R65.10 Systemic inflammatory response syndrome (SIRS) of non-infectious origin without acute organ dysfunction; I48.91 Unspecified atrial fibrillation; E66.01 Morbid (severe) obesity due to excess calories; F03.90 Unspecified dementia, unspecified severity, without behavioral disturbance, psychotic disturbance, mood disturbance, and anxiety; G89.4 Chronic pain syndrome; R07.9 Chest pain, unspecified; I49.1 Atrial premature depolarization; I10 Essential (primary) hypertension; M96.1 Postlaminectomy syndrome, not elsewhere classified; E87.6 Hypokalemia; K80.20 Calculus of gallbladder without cholecystitis without obstruction; R10.11 Right upper quadrant pain; T40.605A Adverse effect of unspecified narcotics, initial encounter
CPT/HCPCS: 36415; 36416; 51701; 70450; 71045; 72125; 76705; 80048; 80053; 80061; 81001; 82550; 82553; 83605; 83735; 83880; 84100; 84443; 84484; 85007; 85025; 85027; 87040; 87086; 93005; 93306; 94760; 96361; 96365; 96375; A4216; A4353; C9113; G8978-GP-CL; G8979-GP-CJ; G8987-GO-CM; G8988-GO-CK; G8996-GN-CJ; G8997-GN-CJ; J0696; J1650; J2270; J3370

== ENCOUNTER 2018-03-02 10:11 | Inpatient (IN) | payer MEDICARE ==
[2018-03-02 10:38] LABS: #Eosinphils 0.1 thou/uL (0.0-0.7); #Lymphocytes 1.2 thou/uL (1.20-3.40); #Monocytes 0.8 thou/uL (0.11-0.59); #Neutrophils 8.3 thou/uL (1.40-6.50); %Basophils 0.3 % (0.0-1.0); %Eosinophils 1.1 % (0.0-10.0); %Lymphocytes 11.7 % (21.0-51.0); %Monocytes 7.4 % (0.0-10.0); %Neutrophils 79.6 % (42.0-75.0); Hemoglobin 13.2 g/dL (12.0-16.0); Mean Corpuscular HGB CONC 32.1 g/dL (32.0-36.0); Mean Corpuscular Hemoglobin 31.3 pg (27.0-31.0); Mean Corpuscular Volume 97.4 fl (81.0-99.0); Mean Platelet Volume 8.6 fL (7.4-10.4); Platelet Count 224 thou/uL (130-400); RBC Distribution Width 12.4 % (11.5-14.5); Red Blood Cell (RBC) Count 4.21 mill/uL (4.20-5.40); White Blood Cell (WBC) Count 10.4 thou/uL (4.8-10.8)
[2018-03-02 11:00] LABS: ALT (SGPT) 13 U/L (8-55); AST (SGOT) 15 U/L (5-34); Albumin 3.3 g/dL (3.4-4.8); Alkaline Phosphatase 68 U/L (40-150); Anion Gap 16 mmol/L (10-20); BUN (Urea Nitrogen) 32 mg/dL (9.8-20.1); Bilirubin, Total 0.4 mg/dL (0.2-1.2); Calc. Creatinine Clearance 0 mL/min (70-130); Calcium 8.8 mg/dL (7.8-10.44); Carbon Dioxide 23 mmol/L (23-31); Chloride 102 mmol/L (98-107); Estimated GFR-MDRD 35; Globulin 2.5 g/dL (2.4-3.5); Glucose 156 mg/dL (83-110); Lipase 13 U/L (8-78); Potassium 4.8 mmol/L (3.5-5.1); Protein, Total 5.8 g/dL (6.0-8.3); Sodium 136 mmol/L (136-145)
[2018-03-02 11:01] LABS: CKMB 3.6 ng/mL (0-6.6); Troponin I Less than 0.010 ng/mL (< 0.028)
--- NOTE | 2018-03-02 11:22 | RAD ---
CHEST ONE VIEW: History: Altered mental status. Comparison: 02-15-18 FINDINGS: Lungs are hyperinflated. No pneumothorax. Elevation of right hemidiaphragm, chronic. No focal airspac e consolidation. Degenerative change of the shoulder. IMPRESSION: Chronic changes. No acute intrathoracic abnormality. POS: [facility]
[2018-03-02 11:28] LABS: Bilirubin Negative (Negative); Blood, Urine Negative (Negative); Clarity CLEAR (Clear); Glucose, Urine (Dipstick) Negative (Negative); Leukocyte Negative (Negative); Nitrite Negative (Negative); Protein, Urine (Dipstick) Negative (Neg-Trace); Specific Gravity, Urine 1.013 (1.002-1.036); Urobilinogen 0.2 mg/dL (0.2-1.0)
--- NOTE | 2018-03-02 11:34 | CT ---
CT HEAD NONCONTRAST: HISTORY: Altered mental status. COMPARISON: 02/15/2018 FINDINGS: There is no evidence of acute intracranial hemorrhage or infarct. The ventricles appear normal in si ze, shape, and position. There is no mass effect, or shift of midline structures. The visualized pa ranasal sinuses remain well aerated. IMPRESSION: No acute intracranial abnormalities are demonstrated on noncontrast CT head. POS: [facility]
[2018-03-02] MEDS ORDERED: Norepinephrine 8 MG/250 ML BAG IVPB PRN ×2 (12:05→20:33)
[2018-03-02 13:03] LABS: Acetaminophen Less than 6.0 mcg/mL (10.0-30.0); Alcohol Less than 10 mg/dL (Less than 10); Salicylate Less than 8.0 mg/dL (15.0-30.0)
[2018-03-02 13:05] LABS: Amphetamine Not Detected (NotDetected); Barbiturates Screen Not Detected (NotDetected); Benzodiazepine Screen Not Detected (NotDetected); Cocaine Metabolite Screen Not Detected (NotDetected); Medtox Control Line Valid? VALID (VALID); Medtox Reader # READER 1; Methadone Not Detected (NotDetected); Methamphetamine Not Detected (NotDetected); Opiate Screen Detected (NotDetected); Oxycodone Screen Not Detected (NotDetected); Phencyclidine (PCP) Not Detected (NotDetected); THC/Cannabinoid Screen Not Detected (NotDetected); Tricyclic Screen Not Detected (NotDetected)
[2018-03-02] MEDS ORDERED: Hydrocortisone Sod Succ/PF 100 mg/2 ml Vial ONE (13:06)
[2018-03-02] MEDS ORDERED: Sodium Chloride 0.9% 1,000 ML IV SCH ×2 (14:00→19:15)
[2018-03-02] MEDS ORDERED: Ondansetron HCl/PF 4 MG/2 ML Vial IVP PRN ×2 (14:00→20:34)
[2018-03-02] MEDS ORDERED: Acetaminophen 650 MG Suppository PR PRN ×2 (14:00→20:33)
[2018-03-02] MEDS ORDERED: Acetaminophen 325 MG TAB PO PRN (14:00)
[2018-03-02] MEDS ORDERED: Norepinephrine 8 MG/0.9% NS 250 ML IVPB SCH (14:00)
[2018-03-02] MEDS ORDERED: CCU Electrolyte Replacement 1 EACH FS ONE (14:00)
[2018-03-02] MEDS ORDERED: HumaLOG 300 UNITS/3 ML VIAL SC PRN ×4 (14:26→20:35)
[2018-03-02] MEDS ORDERED: Dextrose 5% in Water 1,000 ML IV PRN ×2 (14:26→20:34)
[2018-03-02] MEDS ORDERED: Dextrose 50% Abboject 50 ML SYRINGE SLOW IVP PRN ×2 (14:26→20:35)
--- NOTE | 2018-03-02 14:56 | HP ---
REASON FOR ADMISSION: Possible septic shock. HISTORY OF PRESENT ILLNESS: The patient was sent from [facility]. She was not herself. She was agitated and her blood pressure also dropped there. On arrival here, patient was very agitated and had to be restrained. She was trying to pull her IV lines and in fact pulled her Muniz catheter with the bulb. She had blood pressures dropping down to 60s, and was given 2 liters of bolus. She initially had an intraosseous access on the left tibia. She has had preliminary workup done including CT brain, chest x-ray, urine drug screen, all of which are within normal limits except for opiates in the urine, likely iatrogenic. White count is 10 with 79% neutrophils. UA is not suggestive of any urinary tract infection. Please note majority of this history is obtained by talking to Dr. Tellez, ER physician, and prior medical records and penitentiary records from [place]. The patient is currently not oriented and is encephalopathic. PAST MEDICAL/SURGICAL HISTORY: She is a penitentiary resident at [place]. Has a known history of chronic pain syndrome; baseline dementia; major depression; iron deficiency anemia; diabetes mellitus, type 2; hypertension; likely paroxysmal atrial fibrillation; cholelithiasis; history of rheumatoid arthritis. CURRENT MEDICATIONS: The patient is on baclofen 20 mg 3 times daily, citalopram 20 mg daily, dicyclomine 20 mg q.6 hourly p.r.n., potassium chloride 20 mEq p.o. twice daily, Lasix 80 mg twice daily, lisinopril 20 mg daily, Lyrica 75 mg twice daily, Toprol-XL 50 mg twice daily, Zyrtec 10 mg daily, omeprazole 20 mg daily, morphine extended release 60 mg twice daily. ALLERGIES: She is allergic to ASPIRIN, CLINDAMYCIN, ETHER, EGGS, MOTRIN, NSAIDS , PENICILLIN, SULFA, AND TETRACYCLINE. PERSONAL HISTORY: Cannot be obtained, as patient is currently not oriented. She lives at [facility]. FAMILY HISTORY: Cannot be obtained, as patient is not oriented. REVIEW OF SYSTEMS: Cannot be obtained, as patient is not oriented. PHYSICAL EXAMINATION: GENERAL: The patient is a 77-year-old female, who is currently agitated and is in restraints. VITAL SIGNS: Blood pressure 90/50, pulse 86 per minute, respiratory rate 20 per minute, temperature 98.1 degrees rectal, saturating 100% on 3 liters nasal cannula. NECK: Supple, no elevated JVD. HEENT: Eyes, pupils are 3 mm and reacting to light. Oral cavity, mucous membranes are dry. No exudates or congestion. CARDIOVASCULAR SYSTEM: S1 and S2 heard. Regular rhythm. RESPIRATORY SYSTEM: Air entry 1+ bilateral. Scattered rhonchi plus bilateral. ABDOMEN: Soft, bowel sounds heard. No tenderness, rigidity, or guarding. EXTREMITIES: No peripheral edema or calf tenderness. VASCULAR SYSTEM: Peripheral pulses 1+ bilateral, no ischemic ulcerations or gangrene. CENTRAL NERVOUS SYSTEM: No gross focal signs seen. The patient is seen moving all 4 extremities. PSYCHIATRIC SYSTEM: Cannot be assessed due to current agitation. LABORATORY AND X-RAY FINDINGS: CT brain shows no acute intracranial abnormalities. There is no evidence of intracranial hemorrhage or infarct. Chest x-ray done shows no acute intrathoracic abnormality. There is chronic elevation of right hemidiaphragm. No focal air space consolidation is seen. White count of 10, H and H 13 and 41, platelet count is 224, MCV is 97 with 79% neutrophils. BUN 32, creatinine 1.4, serum bicarbonate 23, serum glucose 156. Liver enzymes are within normal limits. Albumin is 3.3, lipase is 13. UA is negative for any infection. Urine drug screen is positive for opiates. EKG done shows normal sinus rhythm at 73 beats per minute. CLINICAL IMPRESSION AND PLAN: The patient will be admitted to ICU, as she is currently requiring Levophed for pressure support. It is unclear if patient has sepsis with shock at present. She will be given a dose of 100 mg of hydrocortisone stat in the ER. The patient is also on baclofen and extended release morphine at the penitentiary. It is unclear if patient is going through withdrawal from those. Blood and urine cultures have been obtained in the ER. She will be placed on cefepime, Levaquin, and vancomycin until her pressure stabilized or cultures are negative. We will continue her on immediate release morphine to prevent withdrawal. She has received 2 liters of normal saline bolus in the ER, a third one is currently running, and she will be on 80 mL per hour of normal saline thereafter. A recent echo showed good ejection fraction. A pulmonary consultation with Dr. Garcia has been requested by ER physician, Dr. Tellez. I have tried to contact the patient's son, Mr. Haile Wahl, and [phone], and I am unable to reach him at present. We will try to contact the son regarding code status. Until we ascertain Advance Directives, the patient will be a FULL CODE for now. The patient has advanced age with dementia and multiple comorbid conditions, in addition to her being on chronic pain medications with pretty bad reactions to them if abruptly stopped. A cortisol level stat has been ordered. We will obtain CT of the chest, abdomen, and pelvis to see if there is any source of sepsis. Ultrasound venous Doppler of lower extremities will be obtained as well. FERNANDA
[2018-03-02] MEDS ORDERED: Haloperidol Lactate 5 MG/ML VIAL ONE (15:07)
--- NOTE | 2018-03-02 15:17 | CT ---
CT CHEST NONCONTRAST: CT ABDOMEN AND PELVIS NONCONTRAST: HISTORY: Hypotension. FINDINGS: CHEST: Each renal collecting system, ureter, and urinary bladder are decompressed without stone evid ent. A Muniz catheter is in place. Lack of contrast limits evaluation for other abnormalities. There is mild atelectasis at the right l dee base. Just deep to the right pectoralis muscle is a lobular, well circumscribed, soft tissue den sity that is slightly heterogeneous. It measures up to 5.7 cm in length x 5.3 cm in width x 2.9 cm i n depth. The planes, in general, run along the adjacent muscular planes. A small metallic density i s present within the left anterior aspect of the central canal, at the L4-L5 level, possibly related to prior instrumentation. The gallbladder is distended up to 10.9 cm without adjacent fat stranding or significant wall thicken ing. A few hyperdense stones are present within the dependent portion of the gallbladder. Cysts gonsalo se from the cortex of the kidneys. There are degenerative changes of the lumbar spine. Calcificatio ns within the arterial structures. Small hiatal hernia. IMPRESSION: 1. No CT evidence of urinary tract obstruction or calcification. 2. Exam limited without contrast. Gallbladder distention with gallstones may reflect gallbladder ou tlet obstruction. Clinical correlation regarding other signs and symptoms of acute cholecystitis is required. No cause for acute hypotension is reliably demonstrated. Irregular shaped soft tissue den sity mass deep to the right pectoralis musculature is of uncertain chronicity and significance. The margins are not typical for a neoplasm. POS: [facility]
[2018-03-02] MEDS ORDERED: Magnesium 2 GM/NS 0.9% 100 ML 2 GM in Premix Bag 1 BAG IVPB PRN ×2 (16:00→20:36)
[2018-03-02] MEDS ORDERED: Potassium Chloride 20 MEQ TAB PO PRN ×2 (16:00→20:35)
[2018-03-02] MEDS ORDERED: Potassium Phosphate 15 MMOL in Sodium Chloride 0.9% 250 ML 250 ML IV PRN ×2 (16:00→20:36)
[2018-03-02] MEDS ORDERED: Magnesium Oxide 400 MG TAB PO PRN ×4 (16:00→20:36)
[2018-03-02] MEDS ORDERED: Potassium Chloride 40 MEQ in Premix Bag 1 BAG IVPB PRN ×2 (16:00→20:35)
[2018-03-02] MEDS ORDERED: Potassium Phosphate 12 MMOL in Sodium Chloride 0.9% 250 ML 250 ML IV PRN ×2 (16:00→20:36)
[2018-03-02] MEDS ORDERED: Potassium Phosphate 9 MMOL in Sodium Chloride 0.9% 100 ML IVPB PRN ×2 (16:00→20:36)
[2018-03-02] MEDS ORDERED: Potassium Chloride 40 MEQ in Sodium Chloride 0.9% 250 ML 250 ML IVPB PRN ×2 (16:00→20:35)
[2018-03-02] MEDS ORDERED: CCU ELECTROLYTE REPLACEMENT PROTOCOL FS PRN ×2 (16:00→20:35)
[2018-03-02] MEDS ORDERED: Cefepime 1 GM, Admixture Fee 1 EACH in Sodium Chloride 0.9% 10 ML SLOW IVP SCH (17:00)
[2018-03-02] MEDS ORDERED: Levofloxacin 750 mg/D5W 500 MG in Premix Bag 1 BAG IVPB SCH ×2 (18:00→20:45)
[2018-03-02 20:57] VITALS: BMI 30.8
[2018-03-02] MEDS ORDERED: Cefepime 1 GM in Sodium Chloride 0.9% 100 ML IVPB SCH (21:00)
[2018-03-02] MEDS ORDERED: Vancomycin HCl 1 GM in Sodium Chloride 0.9% 250 ML 250 ML IVPB SCH ×3 (21:00)
[2018-03-02] MEDS ORDERED: Morphine IR Tab 15 MG TAB PO SCH (21:00)
[2018-03-02] MEDS ORDERED: Vancomycin HCl 750 MG in Sodium Chloride 0.9% 250 ML 250 ML IVPB SCH (21:00)
[2018-03-02] MEDS ORDERED: Famotidine 40 MG/4 ML VIAL SLOW IVP SCH ×2 (21:00)
--- NOTE | 2018-03-02 21:09 | CON ---
DATE OF CONSULTATION: 03/02/2018 HISTORY OF PRESENT ILLNESS: She is from [facility]. She sees Dr. Eugene in [facility]. She lives in [place], but apparently she was transferred from the [facility] as per the son, whom I spoke to him at length. After there was some change in mental status, hypertension. She was recently discharged here on 02/19/2018 with a diagnosis of sepsis syndrome, hyperkalemia, chest pain, dementia, but according to the son, the patient is not demented. She has chronic pain. She has a doctor in [place] and primary care doctor is in [place], [place]. She was seen by Cardiology during the last admission and stated that the EF was normal. There was no acute cardiac event at the time. She was also seen by pain management and apparently she has chronic pain syndrome and apparently take s morphine sulfate 50 mg twice a day. She also has a baclofen 10 mg p.o. b.i.d. Because of her delirium, some of her medications were discontinued during the previous admission. She is a long-term smoker, has got a cough, but denies any recent history of pneumonia, TB, asthma. PAST MEDICAL HISTORY: Chronic pain secondary to post-laminectomy syndrome involving cervical and low er lumbar surgery. She has dementia. Previous electrolyte imbalance. SNF MEDICATIONS: Reviewed, Lyrica 75 twice a day, potassium, Protonix 40, nitroglycerin, mo rphine 8 tablets 15 twice a day, Toprol-XL 50 twice a day, Zestril 20, Lasix 80 b.i.d., Bentyl 20 manoj ry 6 hours, B12, Celexa 20, Zyrtec, baclofen 20 twice a day. ALLERGIES: ASPIRIN, CLINDAMYCIN, PENICILLIN, SULFA, TETRACYCLINE. She is now started on 3 antibiotics by the admitting doctor, which includes vancomycin, Levaquin, Max ipime, and steroids. She was started on Levophed in the ER. She has received IV fluids, unknown how much quantity she rec eived. REVIEW OF SYSTEMS: Unobtainable at this time. PHYSICAL EXAMINATION: GENERAL: She is agitated. ER physician is trying to start a central line. VITAL SIGNS: Sats are 98%, pulse 80, blood pressure 138/80. CHEST: Decreased breath sounds, no wheezing. CARDIAC: Normal S1, S2, no gallops. ABDOMEN: Soft. EXTREMITIES: No edema. IMAGING STUDIES: She had emergency CT chest and abdomen and pelvis done today, which shows no eviden ce of any acute urinary tract obstruction. No mass or lesion was seen. No acute infiltrates were se en. Chest x-ray was otherwise normal. CT brain emergency basis was done, which showed no acute changes. LABORATORY DATA: Lab was reviewed, which shows a white count of 10,000, H and H 13 and 41, platelet count 224, creatinine 1.4. Electrolytes are normal. Creatinine from previous admission was normal. IMPRESSION: 1. Hypertension, appears to be volume related. She is discharged home on large doses of Lasix with a normal ejection fraction. 2. Encephalopathy, metabolic. 3. Chronic pain. 4. Slow to recuperate from a recent fall. 5. Tobacco abuse. PLAN: Avoid excessive pain medicine that could be causing encephalopathic. There is no obvious sour ce of sepsis at this time, but continue antibiotics until we reculture, continue aggressive hydration and supportive care. We will follow while in the ICU. 45 minutes critical care time.
[2018-03-02] MEDS: Famotidine 40 MG/4 ML VIAL SLOW IVP SCH (21:12)
[2018-03-02] MEDS: Morphine IR Tab 15 MG TAB PO SCH (21:12)
[2018-03-02] MEDS: Sodium Chloride 0.9% 1,000 ML IV SCH (21:13)
[2018-03-02] MEDS: Vancomycin HCl 750 MG in Sodium Chloride 0.9% 250 ML 250 ML IVPB SCH (22:44)
[2018-03-02] MEDS: Cefepime 1 GM, Admixture Fee 1 EACH in Sodium Chloride 0.9% 10 ML SLOW IVP SCH (22:45)
--- NOTE | 2018-03-02 22:46 | ULT ---
BILATERAL LOWER EXTREMITY VENOUS ULTRASOUND WITH DOPPLER 03/02/18 HISTORY: Bilateral lower extremity pain. COMPARISON: None. TECHNIQUE: Mathews scale, color flow, doppler imaging with spectral waveform analysis performed in the right and le ft lower extremity venous system. FINDINGS: RIGHT LOWER EXTREMITY: There is compressibility, presence of flow and augmentation of common femoral vein, femoral vein, and popliteal vein. There is flow in the greater saphenous vein and profunda vein. There is lack of comp ressibility and lack of flow in the posterior tibial vein. Minimal flow in the distal posterior tibia l vein is noted. LEFT LOWER EXTREMITY: There is compressibility, presence of flow and augmentation of common femoral vein, femoral vein, and popliteal vein. There is flow in the greater saphenous vein and profunda vein. There is compressibil ity, flow and augmentation in the posterior tibial vein. IMPRESSION: Partial thrombus in the right lower extremity posterior tibial vein. POS: [facility]
[2018-03-02] MEDS: Enoxaparin Sodium 40 MG/0.4 ML SYRINGE SC SCH (22:47)
--- NOTE | 2018-03-03 08:28 | PRG ---
DATE OF SERVICE: 03/03/2018 She remains in the ICU, encephalopathic. PHYSICAL EXAMINATION: VITAL SIGNS: Pulse 120, blood pressure 120/61, sats 90% on room air, respiration 22. NEURO: She is not verbalizing, but clearly is in no distress. Awaiting labs this morning. I's and O's are 2560 in, 2015 out. CHEST: No wheezing. CARDIAC: Normal S1, S2. ABDOMEN: Soft, no masses. LABORATORY: Lab is being ordered. IMPRESSION: 1. Hypertension, probably prerenal. 2. Volume depleted. 3. Metabolic encephalopathy. 4. Advanced age. PLAN: Lab and x-ray are being ordered. I am going to try and start low dose of risperidone once we are able to assess the swallow study. One-half hour critical care time.
[2018-03-03] MEDS ORDERED: Citalopram 20 MG TAB PO SCH (09:00)
[2018-03-03 09:02] LABS: #Lymphocytes 0.6 thou/uL (1.20-3.40); #Monocytes 0.2 thou/uL (0.11-0.59); #Neutrophils 9.2 thou/uL (1.40-6.50); %Eosinophils 0.1 % (0.0-10.0); %Lymphocytes 5.8 % (21.0-51.0); %Monocytes 2.2 % (0.0-10.0); %Neutrophils 91.9 % (42.0-75.0); Hemoglobin 11.6 g/dL (12.0-16.0); Mean Corpuscular HGB CONC 33.2 g/dL (32.0-36.0); Mean Corpuscular Hemoglobin 31.5 pg (27.0-31.0); Mean Corpuscular Volume 94.7 fl (81.0-99.0); Mean Platelet Volume 8.6 fL (7.4-10.4); Platelet Count 211 thou/uL (130-400); RBC Distribution Width 12.3 % (11.5-14.5); Red Blood Cell (RBC) Count 3.68 mill/uL (4.20-5.40)
--- NOTE | 2018-03-03 09:33 | ULT ---
ULTRASOUND ABDOMEN: Date: 03/03/18 HISTORY: Altered mental status. Concern for acute cholecystitis. Gallstones on CT scan of previous day. FINDINGS: Gallbladder is distended with sludge. No shadowing calculi are seen. The tiny calculi seen in the CT scan of previous day are not visualized. No gallbladder wall thickening or pericholecystic fluid is s een. The common duct is not visualized. The liver demonstrates homogeneous echotexture without focal mass or intrahepatic ductal dilatation. The visualized portions of the pancreas, aorta, and IVC are u nremarkable. The spleen is not visualized due to patient's inability to roll on to side. No hydroneph rosis is noted on either side. There are cysts on the kidneys bilaterally. IMPRESSION: 1. Distended gallbladder with sludge. 2. Bilateral renal cysts. POS: [facility]
[2018-03-03 09:38] LABS: Chloride 108 mmol/L (98-107); Potassium 4.4 mmol/L (3.5-5.1); Sodium 143 mmol/L (136-145)
[2018-03-03 09:39] LABS: Glucose 168 mg/dL (83-110)
[2018-03-03 09:40] LABS: Anion Gap 15 mmol/L (10-20); Carbon Dioxide 24 mmol/L (23-31)
[2018-03-03 09:42] LABS: Calc. Creatinine Clearance 66 mL/min (70-130); Estimated GFR-MDRD 65
[2018-03-03 09:43] LABS: BUN (Urea Nitrogen) 25 mg/dL (9.8-20.1)
[2018-03-03] MEDS: Sodium Chloride 0.9% 1,000 ML IV SCH ×2 (09:44→15:26)
--- NOTE | 2018-03-03 09:51 | RAD ---
PORTABLE CHEST: History: Shortness of breath. Comparison: 03-02-18 FINDINGS: Heart size is within normal limits. Mediastinal structures appear unremarkable. The lungs are clear o f infiltrative process. There is slight elevation to the right hemidiaphragm. No signs of pneumothora x or other findings. IMPRESSION: No active intrathoracic disease. POS: [facility]
[2018-03-03] MEDS: Citalopram 20 MG TAB PO SCH (12:06)
[2018-03-03] MEDS: Morphine IR Tab 15 MG TAB PO SCH ×2 (12:06→21:32)
[2018-03-03] MEDS: Cefepime 1 GM, Admixture Fee 1 EACH in Sodium Chloride 0.9% 10 ML SLOW IVP SCH ×3 (12:07→23:40)
[2018-03-03] MEDS: risperiDONE 0.25 MG TAB PO SCH ×2 (12:07→21:33)
--- NOTE | 2018-03-03 12:48 | PDOC.PN ---
- Subjective Encounter Start Date: 03/03/18 Encounter Start Time: 11:00 Subjective: awake, not oriented, is hallucinating -: talking continuously, repeats whatever is said to her -: is off pressors from last night - Objective Resuscitation Status: Resuscitation Status FULL:Full Resuscitation MAR Reviewed: Yes Vital Signs & Weight: Vital Signs (12 hours) Temp Pulse Resp Pulse Ox 03/03/18 11:51 99.1 F 113 H 18 03/03/18 11:47 99.1 F 113 H 18 97 03/03/18 08:00 99.1 F 101 H 20 99 Weight Weight 168 lb 10.458 oz Most Recent Monitor Data Heart Rate from ECG 115 NIBP 125/57 NIBP BP-Mean 75 Respiration from ECG 23 SpO2 97 I&O: 03/02/18 03/03/18 03/04/18 06:59 06:59 06:59 Intake Total 2560 660 Output Total 545 320 Balance 2014 340 Result Diagrams: 03/03/18 08:49 03/03/18 09:11 Additional Labs: Accuchecks 03/03/18 03/03/18 03/03/18 12:18 05:06 01:18 POC Glucose 162 H 139 H 161 H Phys Exam - Physical Examination HEENT: PERRLA, sclera anicteric Neck: no JVD, supple Respiratory: no wheezing, no rales Cardiovascular: RRR, no significant murmur Gastrointestinal: soft, no distention, positive bowel sounds no rigidity or guarding Musculoskeletal: no edema, pulses present Neurological: non-focal, moves all 4 limbs Dx/Plan (1) delerium Status: Acute (2) Severe dehydration Code(s): E86.0 - DEHYDRATION Status: Acute (3) Sepsis Code(s): A41.9 - SEPSIS, UNSPECIFIED ORGANISM Status: Suspected Qualifiers: Sepsis type: sepsis due to unspecified organism Qualified Code(s): A41.9 - Sepsis, unspecified organism (4) Chronic pain syndrome Code(s): G89.4 - CHRONIC PAIN SYNDROME Status: Chronic (5) Dementia Code(s): F03.90 - UNSPECIFIED DEMENTIA WITHOUT BEHAVIORAL DISTURBANCE Status: Chronic Comment: Continue supportive mgmt, reorientation techniques, limit pain meds - Plan is on risperidone bid -: speech to clear pt for eating, start thickened/mech soft diet -: d/w son at bedside, wants her to be full code -: is on morphine ir to prevent withdrawal, no further baclofen -: will dc antibiotics in am if all cultures are -ve, likely hypotension is du * . -e to severe dehydration with pt eating very poorly from few days per son. Review of Systems - Medications/Allergies Allergies/Adverse Reactions: Allergies Allergy/AdvReac Type Severity Reaction Status Date / Time aspirin Allergy Verified 02/15/18 23:11 clindamycin Allergy Verified 02/15/18 23:11 egg Allergy Verified 02/15/18 23:16 ether Allergy Verified 02/15/18 23:16 NSAIDS (Non-Steroidal Allergy Verified 02/15/18 23:11 Anti-Inflamma Penicillins Allergy Verified 02/15/18 23:11 Sulfa (Sulfonamide Allergy Verified 02/15/18 23:11 Antibiotics) tetracycline Allergy Verified 02/15/18 23:11 Medications: Current Medications Acetaminophen (Tylenol) 650 mg PO Q4H PRN PRN Reason: Headache/Fever or Pain Acetaminophen (Tylenol) 650 mg [place] Q4H PRN PRN Reason: Headache/Fever or Pain Citalopram Hydrobromide (Celexa) 20 mg PO DAILY [facility] Last Admin: 03/03/18 12:06 Dose: Not Given Dextrose/Water (Dextrose 50%) 25 gm SLOW IVP PRN PRN PRN Reason: Hypoglycemia Enoxaparin Sodium (Lovenox) 40 mg SC 2100 [facility] Last Admin: 03/02/18 22:47 Dose: 40 mg Famotidine (Pepcid) 20 mg SLOW IVP 2100 [facility] Last Admin: 03/02/18 21:12 Dose: Not Given Glucagon (Glucagon) 1 mg IM PRN PRN PRN Reason: Hypoglycemia Sodium Chloride (Normal Saline 0.9%) 1,000 mls @ 100 mls/hr IV .Q10H [facility] Last Admin: 03/03/18 09:44 Dose: 1,000 mls Dextrose/Water (D5w) 1,000 mls @ 0 mls/hr IV .Q0M PRN; As Directed PRN Reason: Hypoglycemia Vancomycin HCl 750 mg/ Sodium (Chloride) 250 mls @ 166.667 mls/hr IVPB 2200 [facility] Last Admin: 03/02/18 22:44 Dose: 250 mls Cefepime HCl 1 gm/Miscellaneous Medication 1 each/ Sodium Chloride 10 mls @ 120 mls/hr SLOW IVP 1100,2300 [facility] Last Admin: 03/03/18 12:18 Dose: 10 mls Insulin Human Lispro (Humalog) 0 units SC .MILD SLIDING SCALE PRN PRN Reason: Mild Correctional Scale Insulin Human Lispro (Humalog) 0 units SC .BEDTIME SLIDING SC PRN PRN Reason: Bedtime Correctional Scale Methylprednisolone Sodium Succinate (Solu-Medrol) 40 mg IVP DAILY [facility] Last Admin: 03/03/18 09:44 Dose: 40 mg Miscellaneous Medication (Pharmacy To Dose) 1 each IVPB ONE PRN PRN Reason: DOSING Stop: 04/01/18 20:56 Morphine Sulfate (Morphine Ir Tab) 15 mg PO BID [facility] Last Admin: 03/03/18 12:06 Dose: Not Given Ondansetron HCl (Zofran) 4 mg IVP Q6H PRN PRN Reason: Nausea/Vomiting Risperidone (Risperidone) 0.25 mg PO BID [facility] Last Admin: 03/03/18 12:07 Dose: Not Given
[2018-03-03] MEDS ORDERED: Sterile Water 10 ML VIAL FS SCH (16:45)
[2018-03-03] MEDS ORDERED: Ziprasidone 20 MG VIAL IM SCH (16:45)
[2018-03-03] MEDS ORDERED: Enoxaparin Sodium 40 MG/0.4 ML SYRINGE SC SCH (21:00)
[2018-03-03] MEDS: Vancomycin HCl 750 MG in Sodium Chloride 0.9% 250 ML 250 ML IVPB SCH (21:32)
[2018-03-03] MEDS: Enoxaparin Sodium 40 MG/0.4 ML SYRINGE SC SCH (21:32)
[2018-03-03] MEDS: Famotidine 40 MG/4 ML VIAL SLOW IVP SCH (23:29)
[2018-03-04] MEDS: Sodium Chloride 0.9% 1,000 ML IV SCH ×2 (03:25→10:18)
[2018-03-04] MEDS: risperiDONE 0.25 MG TAB PO SCH ×2 (09:11→21:03)
[2018-03-04] MEDS: Citalopram 20 MG TAB PO SCH (09:11)
[2018-03-04] MEDS: Morphine IR Tab 15 MG TAB PO SCH ×2 (09:21→21:03)
--- NOTE | 2018-03-04 09:58 | PRG ---
DATE OF SERVICE: 03/04/2018 She still appears to be encephalopathic, though somewhat better. She has been loaded with risperidon e. PHYSICAL EXAMINATION: VITAL SIGNS: Blood pressure 140/80, sats 97 on room air, respirations 18, temperature 98. CHEST: Chest revealed decreased breath sounds, no wheezing. CARDIAC: Normal S1, S2. No gallops. ABDOMEN: Soft, no masses. Her renal function has resolved. Hypotension is resolved. I doubt the patient was septic, though terry feliz does have sludge in her gallbladder. Baseline I am presuming she probably has dementia. IMPRESSION: 1. Hypertension, resolved. 2. Probably most of it is prerenal and gallstone sludge. 3. Encephalopathy. PLAN: Discontinue steroids. Await cultures. In the next 24 hours we will discontinue Maxipime. Ev entually placement. I will follow.
[2018-03-04] MEDS: Cefepime 1 GM, Admixture Fee 1 EACH in Sodium Chloride 0.9% 10 ML SLOW IVP SCH ×2 (10:18→23:45)
--- NOTE | 2018-03-04 11:21 | PDOC.PN ---
- Subjective Encounter Start Date: 03/04/18 Encounter Start Time: 08:35 Subjective: awake, not fully oriented -: follows verbal stimuli, is slightly better cognitively than yesterday -: her intensity of talking is less, is able to name her daughter in room She can also say her grandkids names and gender. Is moving all extremities - Objective Resuscitation Status: Resuscitation Status FULL:Full Resuscitation MAR Reviewed: Yes Vital Signs & Weight: Vital Signs (12 hours) Temp Pulse Resp BP Pulse Ox 03/04/18 11:06 98.6 F 59 L 16 153/88 H 03/04/18 08:17 98 F 80 18 148/80 H 97 03/04/18 08:00 97.8 F 103 H 18 03/03/18 23:46 97.8 F 103 H 18 149/57 H 94 L Weight Weight 168 lb 10.458 oz Most Recent Monitor Data Heart Rate from ECG 115 NIBP 125/57 NIBP BP-Mean 75 Respiration from ECG 23 SpO2 97 I&O: 03/03/18 03/04/18 03/05/18 06:59 06:59 06:59 Intake Total 2560 660 Output Total 545 320 Balance 2015 340 Result Diagrams: 03/03/18 08:49 03/03/18 09:11 Additional Labs: Accuchecks 03/04/18 03/03/18 03/03/18 06:00 21:14 17:03 POC Glucose 91 121 H 169 H 03/03/18 12:18 POC Glucose 162 H Phys Exam - Physical Examination HEENT: PERRLA, moist MMs Neck: no JVD, supple Respiratory: no wheezing, no rales Cardiovascular: RRR, no significant murmur Gastrointestinal: soft, non-tender, positive bowel sounds Musculoskeletal: no edema, pulses present Neurological: non-focal, moves all 4 limbs Dx/Plan (1) delerium Status: Acute Comment: resolving (2) Severe dehydration Code(s): E86.0 - DEHYDRATION Status: Acute Comment: resolving (3) Sepsis Code(s): A41.9 - SEPSIS, UNSPECIFIED ORGANISM Status: Suspected Qualifiers: Sepsis type: sepsis due to unspecified organism Qualified Code(s): A41.9 - Sepsis, unspecified organism (4) Chronic pain syndrome Code(s): G89.4 - CHRONIC PAIN SYNDROME Status: Chronic (5) Dementia Code(s): F03.90 - UNSPECIFIED DEMENTIA WITHOUT BEHAVIORAL DISTURBANCE Status: Chronic Comment: Continue supportive mgmt, reorientation techniques, limit pain meds - Plan sanderson cultures are -ve so far, likely hypotension from dehydration -: will dc antibiotics in am -: speech to clear patient for oral intake -: geodon im until she can take oral risperidone -: continue morphine for chr pain syndrome and to prevent WD * . Will need placement. Review of Systems - Medications/Allergies Allergies/Adverse Reactions: Allergies Allergy/AdvReac Type Severity Reaction Status Date / Time aspirin Allergy Verified 02/15/18 23:11 clindamycin Allergy Verified 02/15/18 23:11 egg Allergy Verified 02/15/18 23:16 ether Allergy Verified 02/15/18 23:16 NSAIDS (Non-Steroidal Allergy Verified 02/15/18 23:11 Anti-Inflamma Penicillins Allergy Verified 02/15/18 23:11 Sulfa (Sulfonamide Allergy Verified 02/15/18 23:11 Antibiotics) tetracycline Allergy Verified 02/15/18 23:11 Medications: Current Medications Acetaminophen (Tylenol) 650 mg PO Q4H PRN PRN Reason: Headache/Fever or Pain Acetaminophen (Tylenol) 650 mg [place] Q4H PRN PRN Reason: Headache/Fever or Pain Citalopram Hydrobromide (Celexa) 20 mg PO DAILY [facility] Last Admin: 03/04/18 09:11 Dose: 20 mg Dextrose/Water (Dextrose 50%) 25 gm SLOW IVP PRN PRN PRN Reason: Hypoglycemia Enoxaparin Sodium (Lovenox) 40 mg SC 2100 [facility] Last Admin: 03/03/18 21:32 Dose: 40 mg Famotidine (Pepcid) 20 mg SLOW IVP 2100 [facility] Last Admin: 03/03/18 23:29 Dose: Not Given Glucagon (Glucagon) 1 mg IM PRN PRN PRN Reason: Hypoglycemia Sodium Chloride (Normal Saline 0.9%) 1,000 mls @ 100 mls/hr IV .Q10H [facility] Last Admin: 03/04/18 10:18 Dose: 1,000 mls Dextrose/Water (D5w) 1,000 mls @ 0 mls/hr IV .Q0M PRN; As Directed PRN Reason: Hypoglycemia Cefepime HCl 1 gm/Miscellaneous Medication 1 each/ Sodium Chloride 10 mls @ 120 mls/hr SLOW IVP 1100,2300 [facility] Last Admin: 03/04/18 10:18 Dose: 10 mls Insulin Human Lispro (Humalog) 0 units SC .MILD SLIDING SCALE PRN PRN Reason: Mild Correctional Scale Insulin Human Lispro (Humalog) 0 units SC .BEDTIME SLIDING SC PRN PRN Reason: Bedtime Correctional Scale Morphine Sulfate (Morphine Ir Tab) 15 mg PO BID [facility] Last Admin: 03/04/18 09:21 Dose: 15 mg Ondansetron HCl (Zofran) 4 mg IVP Q6H PRN PRN Reason: Nausea/Vomiting Risperidone (Risperidone) 0.25 mg PO BID [facility] Last Admin: 03/04/18 09:11 Dose: 0.25 mg
[2018-03-04] MEDS: Enoxaparin Sodium 40 MG/0.4 ML SYRINGE SC SCH (21:02)
[2018-03-04] MEDS: Famotidine 40 MG/4 ML VIAL SLOW IVP SCH (21:02)
[2018-03-05] MEDS: Sodium Chloride 0.9% 1,000 ML IV SCH ×4 (00:34→18:54)
[2018-03-05 08:06] LABS: #Basophils 0.1 thou/uL (0.0-0.2); #Eosinphils 0.1 thou/uL (0.0-0.7); #Lymphocytes 1.7 thou/uL (1.20-3.40); #Monocytes 0.9 thou/uL (0.11-0.59); #Neutrophils 6.5 thou/uL (1.40-6.50); %Basophils 0.6 % (0.0-1.0); %Eosinophils 0.6 % (0.0-10.0); %Lymphocytes 18.3 % (21.0-51.0); %Monocytes 9.4 % (0.0-10.0); %Neutrophils 71.1 % (42.0-75.0); Hemoglobin 11.6 g/dL (12.0-16.0); Mean Corpuscular Hemoglobin 31.7 pg (27.0-31.0); Mean Corpuscular Volume 98.8 fl (81.0-99.0); Mean Platelet Volume 8.4 fL (7.4-10.4); Platelet Count 163 thou/uL (130-400); RBC Distribution Width 12.4 % (11.5-14.5); Red Blood Cell (RBC) Count 3.66 mill/uL (4.20-5.40); White Blood Cell (WBC) Count 9.2 thou/uL (4.8-10.8)
[2018-03-05 08:24] LABS: ALT (SGPT) 11 U/L (8-55); AST (SGOT) 14 U/L (5-34); Albumin 2.8 g/dL (3.4-4.8); Alkaline Phosphatase 50 U/L (40-150); Anion Gap 13 mmol/L (10-20); BUN (Urea Nitrogen) 19 mg/dL (9.8-20.1); Bilirubin, Total 0.5 mg/dL (0.2-1.2); Calc. Creatinine Clearance 80 mL/min (70-130); Calcium 8.4 mg/dL (7.8-10.44); Carbon Dioxide 20 mmol/L (23-31); Chloride 110 mmol/L (98-107); Estimated GFR-MDRD 82; Globulin 2.2 g/dL (2.4-3.5); Glucose 112 mg/dL (83-110); Potassium 3.3 mmol/L (3.5-5.1); Sodium 140 mmol/L (136-145)
[2018-03-05] MEDS: risperiDONE 0.25 MG TAB PO SCH (08:40)
[2018-03-05] MEDS: Morphine IR Tab 15 MG TAB PO SCH ×2 (08:40→20:55)
[2018-03-05] MEDS: Citalopram 20 MG TAB PO SCH (08:40)
[2018-03-05] MEDS: Cefdinir 300 MG CAP PO SCH ×2 (10:38→20:55)
--- NOTE | 2018-03-05 13:34 | PRG ---
DATE OF SERVICE: 03/05/2018 SUBJECTIVE: Remains less encephalopathic. OBJECTIVE: VITAL SIGNS: Blood pressure is 148/79, temperature is 98, pulse 90_ respiration 18, sat 92_. CHEST: Reveals decreased breath sounds without wheezing. CARDIAC: Normal S1, S2, no gallops. ABDOMEN: Soft. EXTREMITIES: No edema. NEUROLOGICAL: She is still encephalopathic, but better. LABORATORY DATA: White count 9000, hemoglobin and hematocrit is 11 and 36, platelet count normal. Electrolytes are normal. IMPRESSION: Hypotension, resolved, probably secondary to diuretics, renal failure, and noted sepsis. PLAN: Discontinue Maxipime. Social work to arrange for placement. [facility]
--- NOTE | 2018-03-05 18:51 | PDOC.PN ---
- Subjective Encounter Start Date: 03/05/18 Encounter Start Time: 10:30 Subjective: is more oriented this morning, follows verbal stimuli -: wants her eyedrops -: is eating better, slept better last night - Objective Resuscitation Status: Resuscitation Status FULL:Full Resuscitation MAR Reviewed: Yes Vital Signs & Weight: Vital Signs (12 hours) Temp Pulse Resp BP Pulse Ox 03/05/18 08:00 98.0 F 79 18 94 L 03/05/18 07:17 98.0 F 79 18 148/79 H 94 L Weight Weight 168 lb 10.458 oz Most Recent Monitor Data Heart Rate from ECG 115 NIBP 125/57 NIBP BP-Mean 75 Respiration from ECG 23 SpO2 97 I&O: 03/04/18 03/05/18 03/06/18 06:59 06:59 06:59 Intake Total 660 1396 Output Total 320 Balance 340 1396 Result Diagrams: 03/05/18 07:54 03/05/18 07:54 Additional Labs: Accuchecks 03/05/18 03/05/18 03/05/18 15:50 11:11 03:47 POC Glucose 97 128 H 103 03/04/18 19:45 POC Glucose 155 H Phys Exam - Physical Examination HEENT: PERRLA, moist MMs Neck: no JVD, supple Respiratory: no wheezing, no rales Cardiovascular: RRR, no significant murmur Gastrointestinal: soft, non-tender, positive bowel sounds Musculoskeletal: no edema, pulses present Neurological: non-focal, moves all 4 limbs Dx/Plan (1) delerium Status: Resolved (2) Severe dehydration Code(s): E86.0 - DEHYDRATION Status: Resolved (3) Sepsis Code(s): A41.9 - SEPSIS, UNSPECIFIED ORGANISM Status: Ruled-out Qualifiers: Sepsis type: sepsis due to unspecified organism Qualified Code(s): A41.9 - Sepsis, unspecified organism (4) Chronic pain syndrome Code(s): G89.4 - CHRONIC PAIN SYNDROME Status: Chronic (5) Dementia Code(s): F03.90 - UNSPECIFIED DEMENTIA WITHOUT BEHAVIORAL DISTURBANCE Status: Chronic Comment: Continue supportive mgmt, reorientation techniques, limit pain meds - Plan appears to be at cognitive baseline -: continue IR morphine -: dc cefepime, blood and urine cs are -ve -: risperidone low dose bid -: dc iv fluids, awaiting placement, is ready for dc if placement is ready * . Review of Systems - Medications/Allergies Allergies/Adverse Reactions: Allergies Allergy/AdvReac Type Severity Reaction Status Date / Time aspirin Allergy Verified 02/15/18 23:11 clindamycin Allergy Verified 02/15/18 23:11 egg Allergy Verified 02/15/18 23:16 ether Allergy Verified 02/15/18 23:16 NSAIDS (Non-Steroidal Allergy Verified 02/15/18 23:11 Anti-Inflamma Penicillins Allergy Verified 02/15/18 23:11 Sulfa (Sulfonamide Allergy Verified 02/15/18 23:11 Antibiotics) tetracycline Allergy Verified 02/15/18 23:11 Medications: Current Medications Acetaminophen (Tylenol) 650 mg PO Q4H PRN PRN Reason: Headache/Fever or Pain Acetaminophen (Tylenol) 650 mg [place] Q4H PRN PRN Reason: Headache/Fever or Pain Cefdinir (Omnicef) 300 mg PO BID [facility] Stop: 03/10/18 09:01 Last Admin: 03/05/18 10:38 Dose: 300 mg Citalopram Hydrobromide (Celexa) 20 mg PO DAILY [facility] Last Admin: 03/05/18 08:40 Dose: 20 mg Dextrose/Water (Dextrose 50%) 25 gm SLOW IVP PRN PRN PRN Reason: Hypoglycemia Enoxaparin Sodium (Lovenox) 40 mg SC 2100 [facility] Last Admin: 03/04/18 21:02 Dose: 40 mg Famotidine (Pepcid) 20 mg SLOW IVP 2100 [facility] Last Admin: 03/04/18 21:02 Dose: 20 mg Glucagon (Glucagon) 1 mg IM PRN PRN PRN Reason: Hypoglycemia Sodium Chloride (Normal Saline 0.9%) 1,000 mls @ 100 mls/hr IV .Q10H [facility] Last Admin: 03/05/18 13:53 Dose: 1,000 mls Dextrose/Water (D5w) 1,000 mls @ 0 mls/hr IV .Q0M PRN; As Directed PRN Reason: Hypoglycemia Insulin Human Lispro (Humalog) 0 units SC .MILD SLIDING SCALE PRN PRN Reason: Mild Correctional Scale Insulin Human Lispro (Humalog) 0 units SC .BEDTIME SLIDING SC PRN PRN Reason: Bedtime Correctional Scale Morphine Sulfate (Morphine Ir Tab) 15 mg PO BID [facility] Last Admin: 03/05/18 08:40 Dose: 15 mg Neomycin/Polymyxin/Dexamethasone (Maxitrol 0.1% Opth Drop) 2 drop EA EYE TID [facility] Ondansetron HCl (Zofran) 4 mg IVP Q6H PRN PRN Reason: Nausea/Vomiting
[2018-03-05] MEDS: Enoxaparin Sodium 40 MG/0.4 ML SYRINGE SC SCH (20:56)
[2018-03-05] MEDS: Famotidine 40 MG/4 ML VIAL SLOW IVP SCH (20:56)
[2018-03-05] MEDS: Maxitrol 0.1% Opth 5 ML BOT EA EYE SCH (22:20)
[2018-03-06] MEDS: Sodium Chloride 0.9% 1,000 ML IV SCH (05:18)
[2018-03-06] MEDS ORDERED: Melatonin 3 MG TAB PO PRN (06:44)
[2018-03-06] MEDS: Citalopram 20 MG TAB PO SCH (09:18)
[2018-03-06] MEDS: Cefdinir 300 MG CAP PO SCH ×2 (09:18→20:54)
[2018-03-06] MEDS: Pregabalin 75 MG CAP PO SCH ×2 (09:18→21:02)
[2018-03-06] MEDS: Morphine IR Tab 15 MG TAB PO SCH ×2 (09:19→21:01)
[2018-03-06] MEDS: Maxitrol 0.1% Opth 5 ML BOT EA EYE SCH (09:20)
[2018-03-06] MEDS ORDERED: Neomycin-Polymyxin-Hc 7.5 ML BOT EA EYE SCH (10:45)
--- NOTE | 2018-03-06 11:25 | PDOC.PN ---
- Subjective Encounter Start Date: 03/06/18 Encounter Start Time: 07:50 Subjective: awake, eating better -: wants to go home, is from [place] -: has not amb yet - Objective Resuscitation Status: Resuscitation Status FULL:Full Resuscitation MAR Reviewed: Yes Vital Signs & Weight: Vital Signs (12 hours) Temp Pulse Resp BP Pulse Ox 03/06/18 08:00 97.9 F 81 16 95 03/06/18 07:51 97.9 F 81 16 153/87 H 95 Weight Weight 168 lb 10.458 oz Most Recent Monitor Data Heart Rate from ECG 115 NIBP 125/57 NIBP BP-Mean 75 Respiration from ECG 23 SpO2 97 I&O: 03/05/18 03/06/18 03/07/18 06:59 06:59 06:59 Intake Total 1396 Balance 1396 Result Diagrams: 03/05/18 07:54 03/05/18 07:54 Additional Labs: Accuchecks 03/06/18 03/05/18 03/05/18 04:43 20:07 15:50 POC Glucose 98 117 H 97 03/05/18 11:11 POC Glucose 128 H Phys Exam - Physical Examination HEENT: PERRLA, moist MMs Neck: no JVD, supple Respiratory: no wheezing, no rales Cardiovascular: RRR, no significant murmur Gastrointestinal: soft, non-tender, positive bowel sounds Musculoskeletal: pulses present, edema present Neurological: non-focal, moves all 4 limbs Dx/Plan (1) delerium Status: Resolved (2) Severe dehydration Code(s): E86.0 - DEHYDRATION Status: Resolved (3) Sepsis Code(s): A41.9 - SEPSIS, UNSPECIFIED ORGANISM Status: Ruled-out Qualifiers: Sepsis type: sepsis due to unspecified organism Qualified Code(s): A41.9 - Sepsis, unspecified organism (4) Chronic pain syndrome Code(s): G89.4 - CHRONIC PAIN SYNDROME Status: Chronic (5) Dementia Code(s): F03.90 - UNSPECIFIED DEMENTIA WITHOUT BEHAVIORAL DISTURBANCE Status: Chronic Comment: Continue supportive mgmt, reorientation techniques, limit pain meds - Plan To amb with PT today -: dc plan in am to [facility] -: on Morphine IR bid, lyrica -: off risperidone now -: omnicef, nebs prn * . Review of Systems - Medications/Allergies Allergies/Adverse Reactions: Allergies Allergy/AdvReac Type Severity Reaction Status Date / Time aspirin Allergy Verified 02/15/18 23:11 clindamycin Allergy Verified 02/15/18 23:11 egg Allergy Verified 02/15/18 23:16 ether Allergy Verified 02/15/18 23:16 NSAIDS (Non-Steroidal Allergy Verified 02/15/18 23:11 Anti-Inflamma Penicillins Allergy Verified 02/15/18 23:11 Sulfa (Sulfonamide Allergy Verified 02/15/18 23:11 Antibiotics) tetracycline Allergy Verified 02/15/18 23:11 Medications: Current Medications Acetaminophen (Tylenol) 650 mg PO Q4H PRN PRN Reason: Headache/Fever or Pain Acetaminophen (Tylenol) 650 mg [place] Q4H PRN PRN Reason: Headache/Fever or Pain Cefdinir (Omnicef) 300 mg PO BID [facility] Stop: 03/10/18 09:01 Last Admin: 03/06/18 09:18 Dose: 300 mg Citalopram Hydrobromide (Celexa) 20 mg PO DAILY [facility] Last Admin: 03/06/18 09:18 Dose: 20 mg Dextrose/Water (Dextrose 50%) 25 gm SLOW IVP PRN PRN PRN Reason: Hypoglycemia Enoxaparin Sodium (Lovenox) 40 mg SC 2100 [facility] Last Admin: 03/05/18 20:56 Dose: 40 mg Famotidine (Pepcid) 20 mg SLOW IVP 2100 [facility] Last Admin: 03/05/18 20:56 Dose: Not Given Glucagon (Glucagon) 1 mg IM PRN PRN PRN Reason: Hypoglycemia Dextrose/Water (D5w) 1,000 mls @ 0 mls/hr IV .Q0M PRN; As Directed PRN Reason: Hypoglycemia Insulin Human Lispro (Humalog) 0 units SC .MILD SLIDING SCALE PRN PRN Reason: Mild Correctional Scale Insulin Human Lispro (Humalog) 0 units SC .BEDTIME SLIDING SC PRN PRN Reason: Bedtime Correctional Scale Melatonin (Melatonin) 3 mg PO HS PRN PRN Reason: Insomnia Metoprolol Succinate (Toprol Xl) 50 mg PO BID [facility] Last Admin: 03/06/18 09:18 Dose: 50 mg Morphine Sulfate (Morphine Ir Tab) 15 mg PO BID [facility] Last Admin: 03/06/18 09:19 Dose: 15 mg Neomycin/Polymyxin/Hydrocortisone (Cortisporin Opth) 2 drop EA EYE TID [facility] Neomycin/Polymyxin/Hydrocortisone (Cortisporin Opth) 2 drop EA EYE NOW [facility] Stop: 03/06/18 12:45 Ondansetron HCl (Zofran) 4 mg IVP Q6H PRN PRN Reason: Nausea/Vomiting Pregabalin (Lyrica) 75 mg PO BID [facility] Last Admin: 03/06/18 09:18 Dose: 75 mg
[2018-03-06] MEDS ORDERED: Polyethylene Glycol 3350 17 GM Packet PO SCH (11:45)
[2018-03-06] MEDS ORDERED: Docusate 100 MG CAP PO SCH (11:45)
--- NOTE | 2018-03-06 14:29 | PRG ---
DATE OF SERVICE: 03/06/2018 SERVICE: Pulmonary Medicine. INTERVAL HISTORY: The patient indicates that she is feeling a little bit better today. She continue s to feel weak. That being said, she indicates that her breathing is improved and she has less swell ing. She is happy with the progress that she has made over the past 2 days. Otherwise, there has be en no interval change to her condition and nursing reports no events overnight. PHYSICAL EXAMINATION: VITAL SIGNS: Afebrile, pulse 81, blood pressure 153/87, respirations 16, saturation 95% on room air. GENERAL: The patient is awake, alert, no apparent distress. LUNGS: Decent air entry. Rhonchi and crackles are both present. There is no prolonged expiratory p hase or wheezing. HEART: Normal rate and regular. ABDOMEN: Soft, nontender, nondistended. Bowel sounds are positive. MUSCULOSKELETAL: No cyanosis or clubbing. There is trace 1+ pitting in the bilateral lower extremit ies. NEUROLOGIC: Grossly nonfocal. LABORATORY DATA: Blood cultures x2, respiratory culture and urine culture are unremarkable to date. ASSESSMENT: 1. Acute kidney injury, resolving. 2. Dehydration. 3. Delirium. 4. Severe sepsis, resolving. 5. Dementia. PLAN: The patient is doing fantastic from a respiratory standpoint. From a purely respiratory persp ective, she is stable for transition out of the hospital. Pulmonary will continue to follow along wh ile she remains in the hospital.
[2018-03-06] MEDS: Neomycin-Polymyxin-Hc 7.5 ML BOT EA EYE SCH ×2 (15:43→20:55)
[2018-03-06] MEDS: Docusate 100 MG CAP PO SCH (20:54)
[2018-03-06] MEDS: Enoxaparin Sodium 40 MG/0.4 ML SYRINGE SC SCH (20:56)
[2018-03-06] MEDS: Famotidine 40 MG/4 ML VIAL SLOW IVP SCH (20:57)
[2018-03-07] MEDS: Docusate 100 MG CAP PO SCH ×2 (08:01→21:16)
[2018-03-07] MEDS: Polyethylene Glycol 3350 17 GM Packet PO SCH (08:01)
[2018-03-07] MEDS: Morphine IR Tab 15 MG TAB PO SCH ×2 (08:01→21:18)
[2018-03-07] MEDS: Cefdinir 300 MG CAP PO SCH ×2 (08:01→21:16)
[2018-03-07] MEDS: Citalopram 20 MG TAB PO SCH (08:01)
[2018-03-07] MEDS: Pregabalin 75 MG CAP PO SCH ×2 (08:02→21:17)
[2018-03-07] MEDS: Neomycin-Polymyxin-Hc 7.5 ML BOT EA EYE SCH ×3 (08:02→21:22)
--- NOTE | 2018-03-07 11:39 | PDOC.PN ---
- Subjective Encounter Start Date: 03/07/18 Encounter Start Time: 10:35 Subjective: no sob or pain -: is eating well, slept well last night -: daughter at bedside - Objective Resuscitation Status: Resuscitation Status FULL:Full Resuscitation MAR Reviewed: Yes Vital Signs & Weight: Vital Signs (12 hours) Temp Pulse Resp BP Pulse Ox 03/07/18 08:00 98.3 F 67 18 95 03/07/18 07:00 98.3 F 63 18 137/82 95 Weight Weight 168 lb 10.458 oz Most Recent Monitor Data Heart Rate from ECG 115 NIBP 125/57 NIBP BP-Mean 75 Respiration from ECG 23 SpO2 97 I&O: 03/06/18 03/07/18 03/08/18 06:59 06:59 06:59 Intake Total 1396 1530 360 Output Total 1 Balance 1396 1529 360 Result Diagrams: 03/05/18 07:54 03/05/18 07:54 Additional Labs: Accuchecks 03/07/18 03/06/18 03/06/18 04:54 21:44 15:58 POC Glucose 98 123 H 133 H 03/06/18 11:33 POC Glucose 155 H Phys Exam - Physical Examination HEENT: PERRLA, moist MMs Neck: no JVD, supple Respiratory: no wheezing, no rales Cardiovascular: RRR, no significant murmur Gastrointestinal: soft, non-tender, positive bowel sounds Musculoskeletal: pulses present, edema present Neurological: non-focal, moves all 4 limbs Dx/Plan (1) delerium Status: Resolved (2) Severe dehydration Code(s): E86.0 - DEHYDRATION Status: Resolved (3) Sepsis Code(s): A41.9 - SEPSIS, UNSPECIFIED ORGANISM Status: Ruled-out Qualifiers: Sepsis type: sepsis due to unspecified organism Qualified Code(s): A41.9 - Sepsis, unspecified organism (4) Chronic pain syndrome Code(s): G89.4 - CHRONIC PAIN SYNDROME Status: Chronic (5) Dementia Code(s): F03.90 - UNSPECIFIED DEMENTIA WITHOUT BEHAVIORAL DISTURBANCE Status: Chronic Comment: Continue supportive mgmt, reorientation techniques, limit pain meds (6) Muscular deconditioning Code(s): R29.898 - OTH SYMPTOMS AND SIGNS INVOLVING THE MUSCULOSKELETAL SYSTEM Status: Acute - Plan doesn't want to go back to [facility] (PT once a week) -: wants another place or rehab -: is cognitively at her baseline -: PT to mobilize as tolerated, on morphine IR, lyrica, will dc omnicef in am -: may dc anytime if placement is ready * . Review of Systems - Medications/Allergies Allergies/Adverse Reactions: Allergies Allergy/AdvReac Type Severity Reaction Status Date / Time aspirin Allergy Verified 02/15/18 23:11 clindamycin Allergy Verified 02/15/18 23:11 egg Allergy Verified 02/15/18 23:16 ether Allergy Verified 02/15/18 23:16 NSAIDS (Non-Steroidal Allergy Verified 02/15/18 23:11 Anti-Inflamma Penicillins Allergy Verified 02/15/18 23:11 Sulfa (Sulfonamide Allergy Verified 02/15/18 23:11 Antibiotics) tetracycline Allergy Verified 02/15/18 23:11 Medications: Current Medications Acetaminophen (Tylenol) 650 mg PO Q4H PRN PRN Reason: Headache/Fever or Pain Acetaminophen (Tylenol) 650 mg [place] Q4H PRN PRN Reason: Headache/Fever or Pain Cefdinir (Omnicef) 300 mg PO BID [facility] Stop: 03/10/18 09:01 Last Admin: 03/07/18 08:01 Dose: 300 mg Citalopram Hydrobromide (Celexa) 20 mg PO DAILY [facility] Last Admin: 03/07/18 08:01 Dose: 20 mg Dextrose/Water (Dextrose 50%) 25 gm SLOW IVP PRN PRN PRN Reason: Hypoglycemia Docusate Sodium (Colace) 100 mg PO BID [facility] Last Admin: 03/07/18 08:01 Dose: 100 mg Enoxaparin Sodium (Lovenox) 40 mg SC 2100 [facility] Last Admin: 03/06/18 20:56 Dose: 40 mg Famotidine (Pepcid) 20 mg SLOW IVP 2100 [facility] Last Admin: 03/06/18 20:57 Dose: 20 mg Glucagon (Glucagon) 1 mg IM PRN PRN PRN Reason: Hypoglycemia Dextrose/Water (D5w) 1,000 mls @ 0 mls/hr IV .Q0M PRN; As Directed PRN Reason: Hypoglycemia Insulin Human Lispro (Humalog) 0 units SC .MILD SLIDING SCALE PRN PRN Reason: Mild Correctional Scale Insulin Human Lispro (Humalog) 0 units SC .BEDTIME SLIDING SC PRN PRN Reason: Bedtime Correctional Scale Melatonin (Melatonin) 3 mg PO HS PRN PRN Reason: Insomnia Metoprolol Succinate (Toprol Xl) 50 mg PO BID [facility] Last Admin: 03/07/18 08:01 Dose: 50 mg Morphine Sulfate (Morphine Ir Tab) 15 mg PO BID [facility] Last Admin: 03/07/18 08:01 Dose: 15 mg Neomycin/Polymyxin/Hydrocortisone (Cortisporin Opth) 2 drop EA EYE TID [facility] Last Admin: 03/07/18 08:02 Dose: 2 drop Ondansetron HCl (Zofran) 4 mg IVP Q6H PRN PRN Reason: Nausea/Vomiting Polyethylene Glycol (Miralax) 17 gm PO DAILY [facility] Last Admin: 03/07/18 08:01 Dose: 17 gm Pregabalin (Lyrica) 75 mg PO BID [facility] Last Admin: 03/07/18 08:02 Dose: 75 mg
[2018-03-07] MEDS: Enoxaparin Sodium 40 MG/0.4 ML SYRINGE SC SCH (21:16)
[2018-03-07] MEDS: Famotidine 40 MG/4 ML VIAL SLOW IVP SCH (21:21)
[2018-03-07] MEDS ORDERED: Famotidine 20 MG TAB PO SCH (21:30)
[2018-03-08] MEDS: Acetaminophen 325 MG TAB PO PRN ×2 (05:54→15:48)
[2018-03-08] MEDS: Cefdinir 300 MG CAP PO SCH (08:46)
[2018-03-08] MEDS: Pregabalin 75 MG CAP PO SCH (08:46)
[2018-03-08] MEDS: Polyethylene Glycol 3350 17 GM Packet PO SCH (08:47)
[2018-03-08] MEDS: Morphine IR Tab 15 MG TAB PO SCH (08:47)
[2018-03-08] MEDS: Citalopram 20 MG TAB PO SCH (08:47)
[2018-03-08] MEDS: Docusate 100 MG CAP PO SCH (08:47)
[2018-03-08] MEDS: Neomycin-Polymyxin-Hc 7.5 ML BOT EA EYE SCH ×2 (08:48→14:56)
--- NOTE | 2018-03-08 12:54 | PDOC.PN ---
- Subjective Encounter Start Date: 03/08/18 Encounter Start Time: 10:00 Subjective: no sob, feels better - Objective Resuscitation Status: Resuscitation Status FULL:Full Resuscitation MAR Reviewed: Yes Vital Signs & Weight: Vital Signs (12 hours) Temp Pulse Resp BP Pulse Ox 03/08/18 11:00 98.1 F 61 16 134/80 96 03/08/18 08:00 98.1 F 65 18 146/76 H 96 Weight Weight 168 lb 10.458 oz Most Recent Monitor Data Heart Rate from ECG 115 NIBP 125/57 NIBP BP-Mean 75 Respiration from ECG 23 SpO2 97 I&O: 03/07/18 03/08/18 03/09/18 06:59 06:59 06:59 Intake Total 1530 1450 Output Total 1 Balance 1529 1450 Result Diagrams: 03/05/18 07:54 03/05/18 07:54 Additional Labs: Accuchecks 03/08/18 03/08/18 03/07/18 11:12 05:11 21:15 POC Glucose 138 H 115 H 112 H 03/07/18 15:56 POC Glucose 118 H Phys Exam - Physical Examination HEENT: PERRLA, moist MMs Neck: no JVD, supple Respiratory: no wheezing, no rales Cardiovascular: RRR, no significant murmur Gastrointestinal: soft, non-tender, positive bowel sounds Musculoskeletal: no edema, pulses present Neurological: non-focal, moves all 4 limbs Psychiatric: A&O x 3 Dx/Plan (1) delerium Status: Resolved (2) Severe dehydration Code(s): E86.0 - DEHYDRATION Status: Resolved (3) Sepsis Code(s): A41.9 - SEPSIS, UNSPECIFIED ORGANISM Status: Ruled-out Qualifiers: Sepsis type: sepsis due to unspecified organism Qualified Code(s): A41.9 - Sepsis, unspecified organism (4) Chronic pain syndrome Code(s): G89.4 - CHRONIC PAIN SYNDROME Status: Chronic (5) Dementia Code(s): F03.90 - UNSPECIFIED DEMENTIA WITHOUT BEHAVIORAL DISTURBANCE Status: Chronic Comment: Continue supportive mgmt, reorientation techniques, limit pain meds (6) Muscular deconditioning Code(s): R29.898 - OTH SYMPTOMS AND SIGNS INVOLVING THE MUSCULOSKELETAL SYSTEM Status: Acute (7) HTN (hypertension) Code(s): I10 - ESSENTIAL (PRIMARY) HYPERTENSION Status: Chronic Qualifiers: Hypertension type: essential hypertension Qualified Code(s): I10 - Essential (primary) hypertension - Plan is awaiting placement, d/w case mgmt -: may dc anytime if above is ready -: to amb with PT as tolerated -: cognitively has improved and is at her baseline -: has severe deconditioning * . continue IR morphine, lyrica and toprol Review of Systems - Medications/Allergies Allergies/Adverse Reactions: Allergies Allergy/AdvReac Type Severity Reaction Status Date / Time aspirin Allergy Verified 02/15/18 23:11 clindamycin Allergy Verified 02/15/18 23:11 egg Allergy Verified 02/15/18 23:16 ether Allergy Verified 02/15/18 23:16 NSAIDS (Non-Steroidal Allergy Verified 02/15/18 23:11 Anti-Inflamma Penicillins Allergy Verified 02/15/18 23:11 Sulfa (Sulfonamide Allergy Verified 02/15/18 23:11 Antibiotics) tetracycline Allergy Verified 02/15/18 23:11 Medications: Current Medications Acetaminophen (Tylenol) 650 mg PO Q4H PRN PRN Reason: Headache/Fever or Pain Last Admin: 03/08/18 05:54 Dose: 650 mg Acetaminophen (Tylenol) 650 mg [place] Q4H PRN PRN Reason: Headache/Fever or Pain Cefdinir (Omnicef) 300 mg PO BID [facility] Stop: 03/10/18 09:01 Last Admin: 03/08/18 08:46 Dose: 300 mg Citalopram Hydrobromide (Celexa) 20 mg PO DAILY [facility] Last Admin: 03/08/18 08:47 Dose: 20 mg Dextrose/Water (Dextrose 50%) 25 gm SLOW IVP PRN PRN PRN Reason: Hypoglycemia Docusate Sodium (Colace) 100 mg PO BID [facility] Last Admin: 03/08/18 08:47 Dose: 100 mg Enoxaparin Sodium (Lovenox) 40 mg SC 2100 [facility] Last Admin: 03/07/18 21:16 Dose: 40 mg Famotidine (Pepcid) 20 mg PO 2100 [facility] Glucagon (Glucagon) 1 mg IM PRN PRN PRN Reason: Hypoglycemia Dextrose/Water (D5w) 1,000 mls @ 0 mls/hr IV .Q0M PRN; As Directed PRN Reason: Hypoglycemia Insulin Human Lispro (Humalog) 0 units SC .MILD SLIDING SCALE PRN PRN Reason: Mild Correctional Scale Insulin Human Lispro (Humalog) 0 units SC .BEDTIME SLIDING SC PRN PRN Reason: Bedtime Correctional Scale Melatonin (Melatonin) 3 mg PO HS PRN PRN Reason: Insomnia Metoprolol Succinate (Toprol Xl) 50 mg PO BID [facility] Last Admin: 03/08/18 08:47 Dose: 50 mg Morphine Sulfate (Morphine Ir Tab) 15 mg PO BID [facility] Last Admin: 03/08/18 08:47 Dose: 15 mg Neomycin/Polymyxin/Hydrocortisone (Cortisporin Opth) 2 drop EA EYE TID [facility] Last Admin: 03/08/18 08:48 Dose: 2 drop Ondansetron HCl (Zofran) 4 mg IVP Q6H PRN PRN Reason: Nausea/Vomiting Polyethylene Glycol (Miralax) 17 gm PO DAILY [facility] Last Admin: 03/08/18 08:47 Dose: 17 gm Pregabalin (Lyrica) 75 mg PO BID [facility] Last Admin: 03/08/18 08:46 Dose: 75 mg
--- NOTE | 2018-03-08 15:46 | PRG ---
DATE OF SERVICE: 03/08/2018 OBJECTIVE: GENERAL: This morning, she is much more awake, responsive, less encephalopathic. VITAL SIGNS: Temperature 98, blood pressure is 110 73, sats 100% on room air, respiration rate 18, pulse 65. CHEST: Decreased breath sounds, no wheezing. CARDIAC: Normal S1, S2, no gallops. ABDOMEN: No masses. IMPRESSION: 1. Hypertension, resolved. 2. Dementia. 3. Chronic pain. She appears to have improved to her baseline status. 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 Pulmonary will follow at a distance. FERNANDA
[2018-03-08 16:21] VITALS: BP 139/78; TEMP 98
[2018-03-08] MEDS ORDERED: Famotidine 20 MG TAB PO SCH (21:00)
--- NOTE | 2018-03-09 06:06 | PRG ---
DATE OF SERVICE: 03/07/2018 SERVICE: Pulmonary Medicine. INTERVAL HISTORY: The patient is doing fine from a cardiovascular and respiratory standpoint. She d enies any chest pain or shortness of breath. Her breathing is comfortable. She has a feeling like s he is getting a little bit better day by day. She has no specific complaints right now. OBJECTIVE: VITAL SIGNS: Afebrile, pulse 67, blood pressure 137/82, respirations 18, saturation 95% on room air. GENERAL: Patient is awake, alert, in no apparent distress. LUNGS: Excellent air entry. There is no prolonged expiratory phase. Minimal rhonchi are present bu t cough clears that. HEART: Normal rate, regular. ABDOMEN: Soft, nontender, nondistended. Bowel sounds are positive. MUSCULOSKELETAL: No cyanosis or clubbing. There is no pitting in the bilateral lower extremities. NEUROLOGIC: Grossly nonfocal. LABORATORIES: Blood cultures x2, respiratory culture, urine culture are all negative. ASSESSMENT: 1. Acute kidney injury, resolving. 2. Dehydration, resolved. 3. Delirium. 4. Dementia. 5. Severe sepsis, improving. PLAN: The patient is doing really well from a respiratory standpoint. At this point, she has no bar riers to discharge from a pulmonary perspective. Dr. Garcia will assume care in the morning. Please c all with additional questions or concerns moving forward.
--- NOTE | 2018-03-09 13:53 | DIS ---
DISCHARGE DISPOSITION: To inpatient rehabilitation. PRIMARY DISCHARGE DIAGNOSES: 1. Acute encephalopathy. 2. Severe dehydration. 3. Sepsis. 4. Severe deconditioning. SECONDARY DISCHARGE DIAGNOSES: Chronic pain syndrome, dementia, hypertension. PROCEDURES DONE DURING HOSPITALIZATION: Chest x-ray done on the day of admission showed chronic changes with no acute abnormalities. CT brain showed no acute intracranial abnormalities. CT of the chest, abdomen, and pelvis without contrast done showed no urinary tract obstruction or calcification. The gallbladder distention with gallstones. Ultrasound venous Doppler of right lower extremity done showed partial thrombus in the posterior tibial wing. Abdominal ultrasound done on the showed distended gallbladder with sludge, no gallbladder wall thickening or pericholecystic fluid was seen. Bilateral renal cysts were seen. Blood cultures x2 no growth. Urine culture no growth. White count of 9, H&H 11 and 36, platelet count 163 with 71 with 71% neutrophils. Discharge BUN and creatinine is 19.6, albumin is 2.8. Cortisol levels on admission were 41.4. Troponin x1 was negative. BUN and creatinine on admission was 32 and 1.4. Urine tox screen was positive for opiates. INPATIENT CONSULTS: Dr. Garcia for Pulmonology and Critical Care. BRIEF COURSE DURING HOSPITALIZATION: The patient initially was sent from [facility] after she was agitated and her blood pressure dropped down to the 60s. On arrival in ER, the patient was confused and agitated, and was trying to pull out IV lines and in fact pulled her Muniz catheter with the bulb. She was placed in ICU for sepsis with possible shock. She was placed on broad spectrum IV antibiotics after sanderson cultures were obtained. She was also on steroids initially. The patient has known history of chronic pain syndrome and is on multiple medications for the same. Her sanderson cultures have been negative so far. All her antibiotics have been discontinued at the time of discharge. She was initially on pressors, which was discontinued successfully after 24 hours in ICU. She was later downgraded to medical floor. She has had improvement in her cognitive function. The patient is severely deconditioned and did not want to go back to her senior care. She would like to try rehab and get stronger and wanted to try to go home. A total of 35 minutes was spent on discharge plan. Her baclofen has been completely discontinued. She is still on morphine IR 15 mg twice daily along with the Lyrica for her chronic pain. Please see a face to face documentation on [employer] for the day of discharge. DISCHARGE MEDICATIONS: Celexa 20 mg daily, vitamin B12 1000 mcg once weekly, Colace 100 mg twice daily, NovoLog sliding scale, lisinopril 10 mg daily, melatonin 3 mg p.o. at bedtime p.r.n. for insomnia, Toprol-XL 50 mg twice daily , morphine IR 15 mg p.o. twice daily, Protonix 40 mg daily, MiraLax 17 grams daily, Lyrica 75 mg twice daily. ALLERGIES: ASPIRIN, CLINDAMYCIN, EGGS, NSAIDS, PENICILLIN, SULFA, AND TETRACYCLINE. MTDD
--- NOTE | 2018-03-17 13:51 | PQF ---
MALENA DE LA GARZA VINAYA KUMAR MD [id number] CLINICAL DOCUMENTATION CLARIFICATION FORM: POST DISCHARGE Addendum to original discharge summary date: ____ Late entry note date: __ DATE: 03/17/2018 ATTN: Verenice Walls Please exercise your independent, professional judgment in responding to the clarification form. Clinical indicators are provided on the bottom of this form for your review Conflicting documentation for diagnosis of sepsis: progress note 03/05-03/06 states sever sepsis resolving and noted sepsis but hospitalist progress note dated 03/05-03/06 sepsis ruled out. Discharge summary states patient was placed in ICU for sepsis with possible shock. Please clarify the status of sepsis and the POA . if sepsis is valid please clarify the type of shock for the ICU admission. Thank you for your time. Please check appropriate box(es): [ ] Sepsis due to: (Pna, UTI, gangrenous gall bladder, etc.) Due to: [ ] Device (please specify) [ ] Implant [ ] Graft [ ] Infusion [ ] SIRS due to non-infectious process (please specify etiology) [ ] with organ dysfunction [ ] without organ dysfunction [ ] Severe sepsis with acute organ dysfunction of: (Examples: respiratory failure, encephalopathy, acute kidney failure, other) [ ] Septic Shock [ ] Localized infection without sepsis [ ] Other diagnosis [ x ] Unable to determine In addition, please specify: Present on Admission (POA): [ ] Yes [ ] No [ ] Unable to determine For continuity of documentation, please document condition throughout progress notes and discharge summary. Thank You. CLINICAL INDICATORS - SIGNS / SYMPTOMS / LABS Altered mental status Fever or hypothermia (<96.8 F/36 C or > 100.4 F/38C) Respiratory rate >20/min, Hypoxemia, SBP <100mmHg Metabolic acidosis Lactic Acid >2mmol/L, Increase BUN/Magneto Specialist, decrease GFR, coag abnormalities, thrombocytopenia-plts <100k Oliguria Shock-hypotension resistant to IV fluid boluses WBC count (>12,000/mm^4 or <4000/mm^3 or 10% neuts, 10% bands) Hyperglycemia in absence of diabetes mellitus Positive blood cultures MTDD
== END 2018-03-08 18:33 | DRG 682 ==
LOC: ERS 10:11 → CCU 13:45 → ERS 18:11 → T4-B 03-03 11:44
PROVIDERS: ADMIT Internal Medicine; ATTEND Internal Medicine
PROC: 3E033XZ Introduction of Vasopressor into Peripheral Vein, Percutaneous Approach (ICD-10-PCS; principal; 2018-03-02)
DX: N17.9 Acute kidney failure, unspecified (principal); G93.41 Metabolic encephalopathy; R40.2212 Coma scale, best verbal response, none, at arrival to emergency department; R40.2342 Coma scale, best motor response, flexion withdrawal, at arrival to emergency department; E86.0 Dehydration; Z78.1 Physical restraint status; E11.9 Type 2 diabetes mellitus without complications; D50.9 Iron deficiency anemia, unspecified; F03.90 Unspecified dementia, unspecified severity, without behavioral disturbance, psychotic disturbance, mood disturbance, and anxiety; F32.9 Major depressive disorder, single episode, unspecified; G89.29 Other chronic pain; Z88.0 Allergy status to penicillin; Z88.2 Allergy status to sulfonamides; Z88.8 Allergy status to other drugs, medicaments and biological substances; Z88.6 Allergy status to analgesic agent; Z88.1 Allergy status to other antibiotic agents; Z91.012 Allergy to eggs; I10 Essential (primary) hypertension; F17.210 Nicotine dependence, cigarettes, uncomplicated; Z98.1 Arthrodesis status; Z79.4 Long term (current) use of insulin; R40.2142 Coma scale, eyes open, spontaneous, at arrival to emergency department
CPT/HCPCS: 36415; 36416; 36556; 51702; 70450; 71045; 71250; 74177; 76700; 80048; 80053; 80306; 80307; 81003; 82533; 82553; 83605; 83690; 84484; 85025; 87040; 87070; 87086; 87205; 93005; 93970; 96360; 96374; 96375; A4216; G8978-GP-CN; G8979-GP-CL; G8987-GO-CL; G8988-GO-CJ; G8996-GN-CM; G8997-GN-CJ; J0692; J1630; J1650; J1720; J1956; J2920; J3370; J3486; J7050